=== PATIENT | male | born 1965 | race Caucasian/White ===

== ENCOUNTER 2017-01-22 01:12 | Emergency (ER) | payer MEDICAID ==
[2017-01-22] MEDS ORDERED: Albuterol-Ipratrop 3 mg / 0.5 (3 ml) UD ONE ×3 (01:20→01:30)
--- NOTE | 2017-01-22 01:42 | C.PDOC ---
History Of Present Illness Patient presents to the ED with complaints of cough and shortness of breath for the last week. Patient denies any fever, chills, nausea, or vomiting. Time Seen by Provider: 01/22/17 01:42 Chief Complaint (Nursing): Shortness Of Breath History Per: Patient History/Exam Limitations: no limitations Onset/Duration Of Symptoms: Days Current Symptoms Are (Timing): Still Present Severity: Mild Pain Scale Rating Of: 4 Associated Symptoms: Other (non-productive cough ). denies: Fever, Chills, Sweating, Chest Pain, Productive Cough Recent travel outside of the [place]: No Past Medical History Reviewed: Historical Data, Nursing Documentation, Vital Signs Vital Signs: Last Vital Signs Temp 98.6 F 01/22/17 01:27 Pulse 102 H 01/22/17 01:27 Resp 22 01/22/17 01:30 BP 113/83 01/22/17 01:27 Pulse Ox 98 01/22/17 02:39 - Medical History PMH: Asthma Family History: States: No Known Family Hx - Social History Hx Alcohol Use: No Hx Substance Use: No - Immunization History Hx Tetanus Toxoid Vaccination: No Hx Influenza Vaccination: No Hx Pneumococcal Vaccination: No Review Of Systems Constitutional: Negative for: Fever, Chills, Sweats Eyes: Negative for: Vision Change ENT: Negative for: Throat Pain Cardiovascular: Negative for: Chest Pain, Palpitations Respiratory: Positive for: Cough (non-productive), Shortness of Breath Gastrointestinal: Negative for: Nausea, Vomiting, Abdominal Pain, Diarrhea Genitourinary: Negative for: Dysuria Musculoskeletal: Negative for: Back Pain Skin: Negative for: Rash, Lesions, Jaundice Neurological: Negative for: Weakness Psych: Negative for: Anxiety Physical Exam - Physical Exam Appears: Non-toxic, No Acute Distress Skin: Warm, Dry Head: Normacephalic Eye(s): bilateral: Normal Inspection Oral Mucosa: Moist Throat: No Erythema Neck: Trachea Midline, Supple Chest: Symmetrical Cardiovascular: Rhythm Regular Respiratory: No Rales, Rhonchi (scattered rhonci bilaterally ), No Stridor, No Wheezing Gastrointestinal/Abdominal: Soft, No Tenderness, No Distention, No Guarding, No Rebound Back: Normal Inspection Extremity: Normal ROM, No Tenderness, Pedal Edema (chronic pedal edema ) Extremity: Bilateral: Atraumatic, Normal Color And Temperature Pulses: Left Dorsalis Pedis: Normal, Right Dorsalis Pedis: Normal Neurological/Psych: Oriented x3 (speaking in complete sentences ), Normal Speech , Normal Cognition Gait: Steady ED Course And Treatment - Laboratory Results Result Diagrams: 01/22/17 02:24 01/22/17 02:24 ECG: Interpreted By Me, Viewed By Me ECG Rhythm: Sinus Rhythm (102), Nonspecific Changes O2 Sat by Pulse Oximetry: 98 (room air ) Pulse Ox Interpretation: Normal - Radiology CXR: Interpreted by Me, Viewed By Me CXR Interpretation: No: Infiltrates, Fracture, Pnemothorax Reevaluation Time: 04:26 Reassessment Condition: Improved Critical Care Time - Critical Care Note Total Time (in mins): 30 Documented critical care: time excludes all time spent performing seperately billable procedures. Disposition Counseled Patient/Family Regarding: Studies Performed, Diagnosis, Need For Followup, Rx Given - Disposition Referrals: Patrick Jean Baptiste MD [Medical Doctor] - Disposition: HOME/ ROUTINE Disposition Time: 01:42 Condition: FAIR Prescriptions: Albuterol 0.083% [Albuterol Sulfate 3 Ml] 3 ml IH QID #50 neb Azithromycin [Zithromax Tri-Ty] 500 mg PO DAILY #3 tablet Prednisone [Deltasone] 20 mg PO DAILY #5 tablet Instructions: Asthma (DC) - Clinical Impression Clinical Impression: Asthma exacerbation - Scribe Statement The provider has reviewed the documentation as recorded by the Scribe Karla Patel All medical record entries made by the Scribe were at my direction and personally dictated by me. I have reviewed the chart and agree that the record accurately reflects my personal performance of the history, physical exam, medical decision making, and the department course for this patient. I have also personally directed, reviewed, and agree with the discharge instructions and disposition.
[2017-01-22] MEDS: Albuterol-Ipratrop 3 mg / 0.5 (3 ml) UD IH SCH ×3 (01:52→02:48)
[2017-01-22 02:26] LABS: BASO # 0.1 K/uL (0.0-0.2); EOS # 0.3 K/uL (0.0-0.7); EOS % 5.6 % (0.0-4.0); HEMATOCRIT 43.7 % (35.0-51.0); LYMPH # 2.8 K/uL (1.0-4.3); LYMPH % 43.9 % (20.0-40.0); MEAN CORPUSCULAR HEMOGLOBIN 27.5 pg (27.0-31.0); MEAN CORPUSCULAR HGB CONC 33.1 g/dL (33.0-37.0); MEAN PLATELET VOLUME 7.7 fL (7.2-11.7); MONO # 0.6 K/uL (0.0-0.8); MONO % 9.8 % (0.0-10.0); NRBC % 0.1 % (0.0-2.0); RED CELL DISTRIBUTION WIDTH 13.7 % (11.5-14.5); WHITE BLOOD COUNT 6.3 K/uL (4.8-10.8)
[2017-01-22 02:36] LABS: CHLORIDE 103 mmol/L (98-107); POTASSIUM 3.9 mmol/L (3.6-5.2); SODIUM 138 mmol/L (132-148)
[2017-01-22 02:37] LABS: GFR AFRICAN-AMERICAN > 60
[2017-01-22 02:38] LABS: ALB/GLOB RATIO 1.1 (1.0-2.1); ALKALINE PHOSPHATASE 49 U/L (38-126); ALT/SGPT 36 U/L (21-72); AST/SGOT 25 U/L (17-59); BILIRUBIN,TOTAL 0.6 mg/dL (0.2-1.3); BLOOD UREA NITROGEN 22 mg/dL (9-20); CALCIUM 7.8 mg/dl (8.6-10.4); CARBON DIOXIDE 23 mmol/L (22-30); GLUCOSE,RANDOM 111 mg/dL (75-110); TOTAL PROTEIN 5.9 g/dL (6.3-8.3)
[2017-01-22 02:39] LABS: MAGNESIUM 2.1 mg/dL (1.6-2.3)
[2017-01-22 03:07] LABS: RBC URINE < 1 /hpf (0-3); URINE BILIRUBIN NEGATIVE (NEGATIVE); URINE BLOOD NEGATIVE (NEGATIVE); URINE COLOR Yellow (YELLOW); URINE GLUCOSE (UA) NORMAL (Normal); URINE KETONE NEGATIVE (NEGATIVE); URINE LEUKOCYTE ESTERASE NEG Leu/uL (Negative); URINE PROTEIN NEGATIVE (NEGATIVE); URINE UROBILINOGEN NORMAL mg/dL (0.2-1.0); WBC URINE 1 /hpf (0-5)
[2017-01-22 04:35] VITALS: BP 115/68; PULSE 105; RESP 20; TEMP 98; O2SAT 96
--- NOTE | 2017-01-22 07:22 | RAD ---
PROCEDURE: CHEST RADIOGRAPH, 1 VIEW HISTORY: Shortness of breath COMPARISON: 08/18/2016 FINDINGS: LUNGS: Mild venous congestion. Bilateral hilar prominence. Patchy bibasilar airspace opacities. PLEURA: No pneumothorax or pleural fluid seen. CARDIOVASCULAR: Normal. OSSEOUS STRUCTURES: No significant abnormalities. VISUALIZED UPPER ABDOMEN: Normal. OTHER FINDINGS: None. IMPRESSION: Mild venous congestion. Bilateral hilar prominence. Patchy bibasilar airspace opacities.
--- NOTE | 2017-01-23 14:22 | CARD ---
APPROVED REPORT EKG Measurement Heart [id number] <Conclusion> Sinus tachycardia Increased R/S ratio in V1, consider early transition or posterior infarct Abnormal ECG
== END 2017-01-22 04:36 | disposition home or self-care (01) ==
LOC: C.ER 01:12
DX: J45.901 Unspecified asthma with (acute) exacerbation (principal)
CPT/HCPCS: 71010; 80053; 81001; 82803; 83735; 83880; 84484; 85025; 85378; 85610; 85730; 87040; 93005; 96374; 99284; J1885

== ENCOUNTER 2017-04-28 16:34 | Emergency (ER) | payer MEDICAID ==
[2017-04-28 17:02] VITALS: BMI 31.9
--- NOTE | 2017-04-28 18:14 | C.PDOC ---
History Of Present Illness <Alexander Ascencio E - Last Filed: 04/29/17 00:23> <Gabriel BLACKWELLLexa - Last Filed: 04/29/17 19:03> 51 yr old male presents to the Er with complaints of headache for the past 3 days. Patient states he took 160mg of Lasix 4 days ago, which is 4x his daily dose and did not take his potassium supplements. States this does not feel like the worse headache of his life. Patient also states he has chronic swelling in both of his legs for the past 2 years. Denies fever, chills, vision changes, chest pain, SOB, nausea, vomiting, abdominal pain, diarrhea, dizziness, weakness or numbness. (Lexa Rios DO) <Alexander Ascencio E - Last Filed: 04/29/17 00:23> History Per: Patient History/Exam Limitations: no limitations Onset/Duration Of Symptoms: Days (3) <Gabriel BLACKWELLLexa - Last Filed: 04/29/17 19:03> Time Seen by Provider: 04/28/17 17:18 Chief Complaint (Nursing): Headache Past Medical History Reviewed: Historical Data, Nursing Documentation, Vital Signs - Medical History PMH: Asthma Family History: States: No Known Family Hx - Social History Hx Alcohol Use: No Hx Substance Use: No - Immunization History Hx Tetanus Toxoid Vaccination: No Hx Influenza Vaccination: No Hx Pneumococcal Vaccination: No <Gabriel BLACKWELLLeax - Last Filed: 04/29/17 19:03> Vital Signs: Last Vital Signs Temp 98.2 F 04/28/17 19:42 Pulse 93 H 04/28/17 19:42 Resp 20 04/28/17 19:42 BP 117/81 04/28/17 19:42 Pulse Ox 96 04/28/17 19:42 Review Of Systems Except As Marked, All Systems Reviewed And Found Negative. Constitutional: Negative for: Fever, Chills Eyes: Negative for: Vision Change Cardiovascular: Negative for: Chest Pain Respiratory: Negative for: Shortness of Breath Gastrointestinal: Negative for: Nausea, Vomiting, Abdominal Pain, Diarrhea Neurological: Positive for: Headache. Negative for: Weakness, Numbness, Dizziness <Gabriel BLACKWELLLexa - Last Filed: 04/29/17 19:03> Physical Exam - Physical Exam Appears: Non-toxic, No Acute Distress Skin: Warm, Dry, No Rash Head: Atraumatic, Normacephalic Oral Mucosa: Moist Chest: Symmetrical, No Tenderness Cardiovascular: Rhythm Regular, No Murmur Respiratory: Normal Breath Sounds, No Rales, No Rhonchi, No Stridor, No Wheezing Extremity: Normal ROM, No Calf Tenderness, Capillary Refill (<2), Other ((+) 2+ pitting edema to bilateral lower extremities.) Neurological/Psych: Oriented x3, Normal Speech, Normal Motor <Lexa Rios DO - Last Filed: 04/29/17 19:03> ED Course And Treatment - Laboratory Results Result Diagrams: 04/28/17 18:25 04/28/17 18:25 <Alexander Ascencio - Last Filed: 04/29/17 00:23> - Laboratory Results Result Diagrams: 04/28/17 18:25 04/28/17 18:25 ECG: Interpreted By Me, Viewed By Me ECG Rhythm: Sinus Rhythm ECG Interpretation: Normal Interpretation Of ECG: Normal axis. Normal intervals. Rate From EC (BPM) O2 Sat by Pulse Oximetry: 96 (RA ) Pulse Ox Interpretation: Normal <Lexa Rios DO - Last Filed: 04/29/17 19:03> Medical Decision Making <Alexander Ascencio - Last Filed: 04/29/17 00:23> <Lexa Rios DO - Last Filed: 04/29/17 19:03> Medical Decision Makin: signed over- pt seen and examined pt with R thigh rash with warmth and tenderness given IV ABX (unknown) last night @ [facility] but left AMA without Rx's for complete ABX regimen "because it smelled bad there" today mild headache, eating but with little appetite. no n/v. Rash 30x20 cm R thigh with erythema warmth c/w mild cellulitis Belly benign. Explains the leukocytosis ? underlying gastritis/H.Pylori inferred from pt's h/o "bacteria in my stomach" A/P: will continue PO abx with keflex for R thigh cellulitis Protonix and maalox for GI upset/gastritis Diet hygiene educated. foreign born increased risk for H.Pylori outpatient f/u for Upper endoscopy and H.Pylori treatment dx/tx PRN though pt c/o leg edema and had take large lasix dose, pt is NOT urinating significantly and has mild lower extremity/pedal edema bilaterally symmetrical normal VS's.no further eval/observation required at this time. (Alexander Ascencio) PLAN: * CXR * EKG * CBC * CMP NOTE: 18:50 - Patient states he was in [facility] yesterday for vomiting. Patient states he was told he has some type of bacteria in his stomach but walked out prior to completing treatment. (Lexa Rios DO) Disposition Doctor Will See Patient In The: Office Counseled Patient/Family Regarding: Studies Performed, Diagnosis - Disposition Disposition Time: 19:23 <Alexander Ascencio - Last Filed: 04/29/17 00:23> <Lexa Rios DO - Last Filed: 04/29/17 19:03> - Disposition Referrals: Patrick Jean Baptiste MD [Medical Doctor] - Disposition: HOME/ ROUTINE Condition: GOOD Additional Instructions: Gastritis, ? H. Pylori: Protonix 20 mg daily Maalox 30 cc (one tablespoon) 5x/day to lower stomach acid Follow up with Dr. Edwards (GI) in 1-2 months to consider upper endoscopy and evaluate for gastritis/H. Pylori Cellulitis of R thigh: keflex 500 twice a day to complete 6 days Follow-up with your PMD for re-eval in 3 days to make sure the cellulitis/ infection is improved. Tylenol 1000 mg every 6 hours or Motrin 400-600 mg every 6 hours as needed for fevers. Prescriptions: Cephalexin [Keflex] 500 mg PO BID #9 capsule Pantoprazole Sodium [Protonix] 20 mg PO DAILY #30 ect Instructions: Gastritis (DC), Cellulitis (ED) Forms: [employer] ([place] Citizen) - Clinical Impression Clinical Impression: Cellulitis of thigh, Gastritis <Alexander Ascencio - Last Filed: 04/29/17 00:23> - Scribe Statement The provider has reviewed the documentation as recorded by the Scribe <Lexa Rios DO - Last Filed: 04/29/17 19:03> - Scribe Statement Candice Jurado (Lexa Rios DO) Provider Attestation: All medical record entries made by the Scribe were at my direction and personally dictated by me. I have reviewed the chart and agree that the record accurately reflects my personal performance of the history, physical exam, medical decision making, and the department course for this patient. I have also personally directed, reviewed, and agree with the discharge instructions and disposition. (Gabriel BLACKWELL,Lexa)
[2017-04-28] MEDS ORDERED: Sodium Chloride 0.9% 1,000 ML IV SCH (18:30)
--- NOTE | 2017-04-28 18:33 | RAD ---
HISTORY: h/o CHF COMPARISON: 01/22/2017. FINDINGS: LUNGS: There is mild pulmonary venous congestion. There is subsegmental atelectasis in the lower lobes. PLEURA: No significant pleural effusion identified, no pneumothorax apparent. CARDIOVASCULAR: Normal. OSSEOUS STRUCTURES: No significant abnormalities. VISUALIZED UPPER ABDOMEN: Normal. OTHER FINDINGS: None. IMPRESSION: Mild pulmonary venous congestion. No evidence of congestive heart failure.
[2017-04-28 18:39] LABS: BASO % 0.3 % (0.0-2.0); CHLORIDE 106 mmol/L (98-107); EOS % 0.3 % (0.0-4.0); HEMATOCRIT 39.8 % (35.0-51.0); LYMPH # 1.4 K/uL (1.0-4.3); LYMPH % 9.3 % (20.0-40.0); MEAN CELL VOLUME 83.1 fL (80.0-94.0); MEAN CORPUSCULAR HEMOGLOBIN 28.1 pg (27.0-31.0); MEAN CORPUSCULAR HGB CONC 33.9 g/dL (33.0-37.0); MEAN PLATELET VOLUME 7.3 fL (7.2-11.7); MONO # 0.7 K/uL (0.0-0.8); MONO % 4.7 % (0.0-10.0); PLATELET COUNT 228 K/uL (130-400); RED CELL DISTRIBUTION WIDTH 13.3 % (11.5-14.5)
[2017-04-28 18:40] LABS: POTASSIUM 4.3 mmol/L (3.6-5.2); SODIUM 139 mmol/L (132-148)
[2017-04-28 18:42] LABS: ALB/GLOB RATIO 0.9 (1.0-2.1); AST/SGOT 19 U/L (17-59); BILIRUBIN,TOTAL 0.7 mg/dL (0.2-1.3); BLOOD UREA NITROGEN 13 mg/dL (9-20); CARBON DIOXIDE 27 mmol/L (22-30); GFR AFRICAN-AMERICAN > 60; TOTAL PROTEIN 5.7 g/dL (6.3-8.3)
[2017-04-28] MEDS ORDERED: Sodium Chloride 0.9% 1,000 ML ONE (18:42)
[2017-04-28 18:43] LABS: ALKALINE PHOSPHATASE 61 U/L (38-126); ALT/SGPT 32 U/L (21-72); CALCIUM 8.3 mg/dl (8.6-10.4); GLUCOSE,RANDOM 93 mg/dL (75-110)
[2017-04-28] MEDS ORDERED: Iohexol 240 (50 ml) PO ONE (18:51)
[2017-04-28 18:54] VITALS: O2SAT 96
[2017-04-28] MEDS ORDERED: Iohexol 240 (50 ml) ONE (19:10)
[2017-04-28 19:11] LABS: EOSINOPHIL 1 % (0-4); NEUTROPHIL 88 % (50-75); TOTAL CELLS COUNTED 100
[2017-04-28 19:50] VITALS: BP 117/81; PULSE 93; RESP 20; TEMP 98.2
--- NOTE | 2017-04-29 06:50 | RAD ---
HISTORY: abd pain, leukocytosis COMPARISON: Frontal chest radiographs 04/28/2017 FINDINGS: LUNGS: Trace atelectasis remains at the right base with linear atelectasis or fibrosis noted at the left base. No definite left-sided infiltrate. PLEURA: No pleural effusion or pneumothorax identified bilaterally. CARDIOVASCULAR: Cardiac size remains normal. No definite pulmonary vascular derangement. Trachea is midline. OSSEOUS STRUCTURES: No significant abnormalities. VISUALIZED UPPER ABDOMEN: Normal. OTHER FINDINGS: None. IMPRESSION: Limited right basilar atelectasis with linear atelectasis or fibrosis in the left base.
--- NOTE | 2017-05-02 19:43 | CARD ---
APPROVED REPORT EKG Measurement Heart [id number] <Conclusion> Normal sinus rhythm Normal ECG
== END 2017-04-28 19:52 | disposition home or self-care (01) ==
LOC: C.ER 16:34
DX: L03.116 Cellulitis of left lower limb (principal); L03.115 Cellulitis of right lower limb; K29.70 Gastritis, unspecified, without bleeding
CPT/HCPCS: 71010; 80053; 83880; 85025; 96374; 96375; 99285; C9113; J1885; J7040; Q9966

== ENCOUNTER 2017-05-31 16:12 | Emergency (ER) | payer MEDICAID ==
[2017-05-31 16:12] VITALS: BMI 31.9
[2017-05-31] MEDS ORDERED: DiphenhydrAMINE 50 mg/ml Inj IVP STA (18:21)
--- NOTE | 2017-05-31 18:26 | C.PDOC ---
History Of Present Illness 51 year old male presents to the ED for evaluation of a 3 day history of a frontal headache that radiates down towards his forehead. Patient notes his symptoms are associated with photophobia and nausea. Patient has been taking Tylenol and Advil without significant relief. Patient also reports redness and pain to his right thigh which began around 2 days ago. Patient states he experienced similar symptoms to his thigh in the past. At the time, he received IV antibiotics which resolved the redness. He denies fever, chills,chest pain, shortness of breath, vomiting, diarrhea, upper/lower extremity numbness/ weakness. Time Seen by Provider: 05/31/17 17:20 Chief Complaint (Nursing): Headache History Per: Patient History/Exam Limitations: no limitations Onset/Duration Of Symptoms: Days Current Symptoms Are (Timing): Still Present Severity: Moderate Quality: Aching, "Pain" Associated Symptoms: Photophobia. denies: Nausea, Vomiting, Extremity Weakness Additional History Per: Patient Past Medical History Reviewed: Historical Data, Nursing Documentation, Vital Signs Vital Signs: Last Vital Signs Temp 97.9 F 05/31/17 22:07 Pulse 93 H 05/31/17 22:07 Resp 18 05/31/17 22:07 BP 101/66 05/31/17 22:07 Pulse Ox 97 05/31/17 22:07 - Medical History PMH: Asthma Surgical History: No Surg Hx Family History: States: Unknown Family Hx - Social History Hx Alcohol Use: No Hx Substance Use: No - Immunization History Hx Tetanus Toxoid Vaccination: No Hx Influenza Vaccination: No Hx Pneumococcal Vaccination: No Review Of Systems Except As Marked, All Systems Reviewed And Found Negative. Constitutional: Negative for: Fever, Chills Eyes: Positive for: Other (photophobia ) Cardiovascular: Negative for: Chest Pain Respiratory: Negative for: Shortness of Breath Gastrointestinal: Positive for: Nausea. Negative for: Vomiting, Diarrhea Musculoskeletal: Positive for: Other (pain to right thigh) Skin: Positive for: Other (redness to right thigh ) Neurological: Positive for: Headache (frontal ). Negative for: Weakness, Numbness Physical Exam - Physical Exam Appears: Non-toxic, No Acute Distress Skin: Warm, Dry, Rash (scattered macular rash to right medial thigh, 0.5-1cm in length ) Head: Atraumatic, Normacephalic Eye(s): bilateral: Normal Inspection, PERRL, EOMI Oral Mucosa: Moist Throat: No Erythema, No Exudate Neck: Normal ROM, Supple Chest: Symmetrical, No Deformity Cardiovascular: Rhythm Regular, No Murmur Respiratory: Normal Breath Sounds Gastrointestinal/Abdominal: Soft, No Tenderness Back: Normal Inspection, No CVA Tenderness Extremity: Normal ROM, No Tenderness, Capillary Refill (less than 2 seconds), No Swelling Neurological/Psych: Oriented x3, Normal Speech, Normal Cognition, Normal Motor, Normal Sensation Gait: Steady ED Course And Treatment - Laboratory Results Result Diagrams: 05/31/17 18:58 05/31/17 18:58 O2 Sat by Pulse Oximetry: 98 (on RA) Pulse Ox Interpretation: Normal Progress Note: CT HEad is unremarkable Medical Decision Making Medical Decision Making: Old records reviewed, the patient seen in the ED last month for headache and rash. Patient was treated with antibiotics and discharged home. Progress: CT Head ordered and reviewed. Benadryl IVP, Reglan IV, Toradol IVP, and IV fluids administered. On re-exam, the patient reports improvement of symptoms. Lungs are CTA, heart is RRR, abdomen is soft, non-tender and tolerating PO well. Ambulatory in the ED steady. Follow up with the medical doctor within 1-2 days. Return if worsened. Disposition - Disposition Referrals: [facility] [Outside] Disposition: HOME/ ROUTINE Disposition Time: 21:58 Condition: GOOD Additional Instructions: Follow up with the medical doctor within 1-2 days. Return if worsened. 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 - Scribe Statement The provider has reviewed the documentation as recorded by the Scribe (Angie Nunn) All medical record entries made by the Scribe were at my direction and personally dictated by me. I have reviewed the chart and agree that the record accurately reflects my personal performance of the history, physical exam, medical decision making, and the department course for this patient. I have also personally directed, reviewed, and agree with the discharge instructions and disposition.
[2017-05-31] MEDS ORDERED: DiphenhydrAMINE 50 mg/ml Inj ONE (18:47)
[2017-05-31] MEDS ORDERED: Sodium Chloride 0.9% 1,000 ML IV ONE (19:00)
[2017-05-31 19:02] LABS: BASO % 0.7 % (0.0-2.0); EOS # 0.2 K/uL (0.0-0.7); EOS % 2.4 % (0.0-4.0); HEMATOCRIT 41.7 % (35.0-51.0); LYMPH # 1.9 K/uL (1.0-4.3); LYMPH % 28.6 % (20.0-40.0); MEAN CELL VOLUME 81.4 fL (80.0-94.0); MEAN CORPUSCULAR HEMOGLOBIN 28.1 pg (27.0-31.0); MEAN CORPUSCULAR HGB CONC 34.5 g/dL (33.0-37.0); MEAN PLATELET VOLUME 6.9 fL (7.2-11.7); MONO # 0.8 K/uL (0.0-0.8); MONO % 11.8 % (0.0-10.0); RED CELL DISTRIBUTION WIDTH 13.9 % (11.5-14.5); WHITE BLOOD COUNT 6.5 K/uL (4.8-10.8)
[2017-05-31 19:17] LABS: CHLORIDE 101 mmol/L (98-107); POTASSIUM 4.4 mmol/L (3.6-5.2); SODIUM 136 mmol/L (132-148)
[2017-05-31 19:19] LABS: GFR AFRICAN-AMERICAN > 60
[2017-05-31 19:20] LABS: ALB/GLOB RATIO 1.1 (1.0-2.1); ALKALINE PHOSPHATASE 53 U/L (38-126); ALT/SGPT 36 U/L (21-72); AST/SGOT 22 U/L (17-59); BILIRUBIN,TOTAL 0.5 mg/dL (0.2-1.3); BLOOD UREA NITROGEN 16 mg/dL (9-20); CALCIUM 7.9 mg/dl (8.6-10.4); CARBON DIOXIDE 24 mmol/L (22-30); GLUCOSE,RANDOM 83 mg/dL (75-110); TOTAL PROTEIN 5.8 g/dL (6.3-8.3)
--- NOTE | 2017-05-31 21:01 | CT ---
EXAM: CT Head Without Intravenous Contrast EXAM DATE/TIME: Exam ordered 05/31/2017 6:26 PM CLINICAL HISTORY: 51 years old, male; Condition or disease; Headache TECHNIQUE: Axial computed tomography images of the head/brain without intravenous contrast. All CT scans at this facility use one or more dose reduction techniques, viz.: automated exposure control; ma/kV adjustment per patient size (including targeted exams where dose is matched to indication; i.e. head); or iterative reconstruction technique. COMPARISON: No relevant prior studies available. FINDINGS: Brain: Unremarkable. No hemorrhage. No significant white matter disease. No edema. Ventricles: Unremarkable. No ventriculomegaly. Bones/joints: Unremarkable. No acute fracture. Soft tissues: There are two parafalcine lipomas. One anteriorly measuring 4 mm and a second near the vertex measuring 2 mm. Sinuses: There is soft tissue thickening of the ethmoid air cells bilaterally. Mastoid air cells: Unremarkable as visualized. No mastoid effusion. Orbits: Calcifications or suture material noted within the orbits bilaterally and medially just inferior to the globe attachment of the medial rectus muscles. IMPRESSION: 1. No acute intracranial findings. 2. Chronic sinusitis of the ethmoid sinuses
[2017-05-31 22:07] VITALS: BP 101/66; PULSE 93; RESP 18; TEMP 97.9
[2017-06-04 16:33] VITALS: O2SAT 98
== END 2017-05-31 22:18 | disposition home or self-care (01) ==
LOC: C.ER 16:12
DX: R51 Headache (principal); L03.115 Cellulitis of right lower limb
CPT/HCPCS: 70450; 80053; 85025; 96361; 96365; 96375; 99285; J1200; J1885; J2765; J7040

== ENCOUNTER 2017-11-14 10:41 | Inpatient (IN) | payer MEDICAID ==
[2017-11-14 10:41] VITALS: BMI 31.9
[2017-11-14] MEDS ORDERED: Sodium Chloride 0.9% 1,000 ML IV ONE (11:48)
--- NOTE | 2017-11-14 12:07 | C.PDOC ---
History Of Present Illness 52-year-old male, denies any significant PMHx, presents to the emergency department with complaints of diffuse abdominal pain x1 day, associated with nausea, non-bloody/non-bilious vomiting, and non-bloody/watery diarrhea. Patient states symptoms started after eating chicken from [employer]. He has never experienced these symptoms in past. Secondary complaint is pain in his right buttock after mechanical slip/fall yesterday. Patient denies any other trauma or injury to neck/head. Denies fevers or chills. No shortness of breath or chest pain. Time Seen by Provider: 11/14/17 11:28 Chief Complaint (Nursing): Abdominal Pain History Per: Patient History/Exam Limitations: no limitations Onset/Duration Of Symptoms: Days (1) Current Symptoms Are (Timing): Still Present Severity: Moderate Past Medical History Reviewed: Historical Data, Nursing Documentation, Vital Signs Vital Signs: Last Vital Signs Temp 98.6 F 11/14/17 16:18 Pulse 102 H 11/14/17 16:18 Resp 20 11/14/17 16:18 BP 110/69 11/14/17 16:18 Pulse Ox 95 11/14/17 18:24 - Medical History PMH: Asthma Family History: States: No Known Family Hx - Social History Hx Alcohol Use: No Hx Substance Use: No - Immunization History Hx Tetanus Toxoid Vaccination: No Hx Influenza Vaccination: No Hx Pneumococcal Vaccination: No Review Of Systems Except As Marked, All Systems Reviewed And Found Negative. Constitutional: Negative for: Fever, Chills Respiratory: Negative for: Shortness of Breath Gastrointestinal: Positive for: Nausea, Vomiting, Abdominal Pain Musculoskeletal: Positive for: Leg Pain (right buttock pain) Neurological: Negative for: Weakness, Numbness, Headache, Dizziness Physical Exam - Physical Exam Appears: Well, Non-toxic, No Acute Distress Skin: Warm, Dry, No Diaphoretic, Rash, Other (macular, erythematous rash to right thigh, no crepitus, no obvious skin breaks ) Head: Normacephalic Eye(s): bilateral: PERRL Nose: Normal Oral Mucosa: Moist Lips: Normal Appearing Neck: Normal ROM Chest: Symmetrical Cardiovascular: Rhythm Regular, No Murmur Respiratory: Normal Breath Sounds, No Accessory Muscle Use Gastrointestinal/Abdominal: Soft, Tenderness (right, mild. (-)[place], (-) [place]), No Distention, No Guarding, No Rebound Back: Normal Inspection, Other (paralumbar tenderness and tenderness to right buttock area, nv intact, negative straight leg test ) Extremity: Normal ROM, No Deformity, No Swelling Neurological/Psych: Oriented x3, Normal Speech ED Course And Treatment - Laboratory Results Result Diagrams: 11/14/17 12:09 11/14/17 12:09 O2 Sat by Pulse Oximetry: 95 (RA) Pulse Ox Interpretation: Normal Medical Decision Making Medical Decision Making: Plan: * CT Abd/Pel * EKG * CMP, Lipase, Trop I * Pepcid, IVFs, Toradol and Zofran * XR Hip * UA * Reassess and Disposition Disposition Discussed With : Hunter Regan Doctor Will See Patient In The: Hospital Counseled Patient/Family Regarding: Studies Performed, Diagnosis - Disposition Disposition: HOME/ ROUTINE Disposition Time: 14:50 Condition: FAIR - Clinical Impression Clinical Impression: Abdominal pain, Cellulitis of thigh, Contusion - Scribe Statement The provider has reviewed the documentation as recorded by the Scribe (Thais Hobbs) All medical record entries made by the Scribe were at my direction and personally dictated by me. I have reviewed the chart and agree that the record accurately reflects my personal performance of the history, physical exam, medical decision making, and the department course for this patient. I have also personally directed, reviewed, and agree with the discharge instructions and disposition.
[2017-11-14 12:14] LABS: BASO # 0.1 K/uL (0.0-0.2); BASO % 0.5 % (0.0-2.0); HEMOGLOBIN 14.2 g/dL (12.0-18.0); LYMPH # 1.2 K/uL (1.0-4.3); LYMPH % 6.6 % (20.0-40.0); MEAN CELL VOLUME 82.8 fL (80.0-94.0); MEAN CORPUSCULAR HEMOGLOBIN 27.7 pg (27.0-31.0); MEAN CORPUSCULAR HGB CONC 33.5 g/dL (33.0-37.0); MEAN PLATELET VOLUME 8.2 fL (7.2-11.7); MONO # 0.8 K/uL (0.0-0.8); MONO % 4.1 % (0.0-10.0); NEUT # 16.6 K/uL (1.8-7.0); NEUT % 88.8 % (50.0-75.0); PLATELET COUNT 252 K/uL (130-400); RBC 5.12 Mil/uL (4.40-5.90); RED CELL DISTRIBUTION WIDTH 14.6 % (11.5-14.5)
[2017-11-14 12:16] LABS: WHITE BLOOD COUNT 18.7 K/uL (4.8-10.8)
[2017-11-14] MEDS ORDERED: Sodium Chloride 0.9% 1,000 ML ONE (12:16)
[2017-11-14] MEDS ORDERED: Iodixanol 320 MG/ML 100 ML BOTTLE IV ONE (12:29)
[2017-11-14 12:30] LABS: ALT/SGPT 38 U/L (21-72); AST/SGOT 34 U/L (17-59); BLOOD UREA NITROGEN 20 mg/dL (9-20); CALCIUM 7.8 mg/dl (8.6-10.4); GFR AFRICAN-AMERICAN > 60; GFR NON-AFRICAN AMERICAN > 60; LIPASE 14 U/L (23-300)
--- NOTE | 2017-11-14 12:58 | RAD ---
PROCEDURE: HISTORY: fall COMPARISON: None TECHNIQUE: AP view of the pelvis and applicable frog leg views obtained. FINDINGS: Bilateral superolateral acetabular spurring with corresponding bilateral joint-space narrowing present Probable right superolateral femoral head subchondral cystic changes No fracture or dislocation. IMPRESSION: Bilateral hip osteoarthrosis. No fracture
[2017-11-14 13:09] LABS: BANDS 5 % (0-2); LYMPHOCYTE 6 % (20-40); MONOCYTE 4 % (0-10); NEUTROPHIL 85 % (50-75); PLATELET ESTIMATE NORMAL (NORMAL); TOTAL CELLS COUNTED 100
--- NOTE | 2017-11-14 13:34 | RAD ---
PROCEDURE: Radiographs of the Lumbar Spine. HISTORY: back pain COMPARISON: No prior. FINDINGS: BONES: Normal alignment. No listhesis. No fracture. DISC SPACES: Unremarkable. OTHER FINDINGS: In the lateral projection, there is a rounded density with possible curvilinear calcification about the inferior border. This is not identifiable in the frontal view of the lumbar spine though this does not include the entire abdomen. Further evaluation with computed tomography of the abdomen is advised. IMPRESSION: Unremarkable lumbar spine. Possible soft tissue mass seen only in the lateral projection. Recommend evaluation with computed tomography.
--- NOTE | 2017-11-14 13:41 | VASCLAB ---
PROCEDURE: Right Lower Extremity Venous Duplex Exam. HISTORY: right leg swelling PRIORS: None. TECHNIQUE: Right common femoral, femoral, popliteal and posterior tibial, peroneal and great saphenous veins were evaluated. Flow was assessed with color Doppler, compressibility, assessment of phasic flow and augmentation response. Report prepared by RAPHAEL Hansen, RVT FINDINGS: RIGHT: 1. Common Femoral Vein: 1.1. Compressibility - Fully compressible: Thrombus - None: Flow - Phasic: Augmentation -Normal: Reflux - None. 2. Femoral Vein: 2.1. Compressibility - Fully compressible: Thrombus - None: Flow - Phasic: Augmentation -Normal: Reflux - None. 3. Popliteal Vein: 3.1. Compressibility - Fully compressible: Thrombus - None: Flow - Phasic: Augmentation -Normal: Reflux - None. 4. Posterior Tibial Vein: 4.1. Compressibility - Fully compressible: Thrombus - None: Flow - Phasic: Augmentation -Normal: Reflux - None. 5. Peroneal Vein: 5.1. Compressibility - Fully compressible: Thrombus - None: Flow - Phasic: Augmentation -Normal: Reflux - None. 6. Great Saphenous Vein: 6.1. Compressibility - Fully compressible: Thrombus -None: Flow - Phasic: Augmentation - Normal: Reflux - None. OTHER FINDINGS: IMPRESSION: No evidence of deep or superficial vein thrombosis of the right lower extremity with excellent venous flow. Normal valve function noted of the right side. Normal venous flow noted in the left common femoral vein.
--- NOTE | 2017-11-14 13:57 | CT ---
PROCEDURE: CT Abdomen and Pelvis with contrast HISTORY: abd pain COMPARISON: None available. TECHNIQUE: Contrast dose: 100 mL Visipaque 100 Radiation dose: Total exam DLP = 1038.18 mGy-cm. This CT exam was performed using one or more of the following dose reduction techniques: Automated exposure control, adjustment of the mA and/or kV according to patient size, and/or use of iterative reconstruction technique. FINDINGS: LOWER THORAX: Right greater than left basilar atelectasis. No visible pleural effusion or pneumothorax. Small hiatal hernia/distal esophageal wall thickening. LIVER: Unremarkable. GALLBLADDER AND BILE DUCTS: Unremarkable. PANCREAS: Fatty atrophy. SPLEEN: Unremarkable. ADRENALS: Unremarkable. KIDNEYS AND URETERS: The kidneys enhance symmetrically. No hydronephrosis or obstructing calculus identified. VASCULATURE: No aortic aneurysm. BOWEL: Stomach is nondistended. Lack of oral contrast limits evaluation for bowel pathology. Bowel loops appear within normal limits of caliber without evidence of obstruction. APPENDIX: The appendix appears within normal limits of caliber. No secondary signs of acute appendicitis. PERITONEUM: No significant free fluid. No definite free air. LYMPH NODES: Right inguinal adenopathy measuring in short axis. BLADDER: Unremarkable. REPRODUCTIVE: The prostate gland measures approximately 3.1 x 4.5 cm. Right-sided hydroceles. BONES: No acute osseous abnormality is detected. OTHER FINDINGS: None. IMPRESSION: Right inguinal adenopathy measuring in short axis. Right sided hydroceles. Right greater than left basilar atelectasis. Additional findings as above.
[2017-11-14] MEDS ORDERED: cefTRIAXone IV 1 gm in Dextros 50 ML IVPB ONE (14:46)
[2017-11-14] MEDS ORDERED: Piperacillin/Tazobact 3.375 GM in Sodium Chloride 100 ML IVPB STA (14:47)
[2017-11-14] MEDS ORDERED: Piperacillin/Tazobact 3.375 gm 100 ML IVPB ONE (14:52)
[2017-11-14] MEDS ORDERED: Vancomycin 1 gm/NS 200 ml 1 GM/200 ML BAG IVPB ONE (16:00)
[2017-11-14 16:43] LABS: SQUAMOUS EPITHIAL < 1 /hpf (0-5); URINE BACTERIA RARE (<OCC); URINE BILIRUBIN NEGATIVE (NEGATIVE); URINE BLOOD NEGATIVE (NEGATIVE); URINE CLARITY Clear (Clear); URINE COLOR Amber (YELLOW); URINE GLUCOSE (UA) NORMAL (Normal); URINE LEUKOCYTE ESTERASE NEG Leu/uL (Negative); URINE PROTEIN 1+ mg/dL (NEGATIVE)
[2017-11-14] MEDS: Piperacill/Tazo 3.375gm in Dex 3.375 GM/50 ML BAG IVPB SCH (21:22)
--- NOTE | 2017-11-14 23:41 | CP.PCM.HP ---
History of Present Illness - History of Present Illness History of Present Illness: Chief Complaint :right leg pain s/p fall 4 days ago Abdominal Pain History Of Present Illness 52-year-old male, denies any significant PMHx, presents to the emergency department with complaints of diffuse abdominal pain x1 day, associated with nausea, non-bloody/non-bilious vomiting, and non-bloody/watery diarrhea. Patient states symptoms started after eating chicken from [employer]. He has never experienced these symptoms in past. Secondary complaint is pain in his right buttock after mechanical slip/fall yesterday. Patient denies any other trauma or injury to neck/head. Denies fevers or chills. No shortness of breath or chest pain. Present on Admission - Present on Admission Any Indicators Present on Admission: Yes Past Patient History - Infectious Disease Hx of Infectious Diseases: None - Tetanus Immunizations Tetanus Immunization: Unknown - Past Medical History & Family History Past Medical History?: Yes - Past Social History Smoking Status: Never Smoked - PULMONARY Hx Asthma: Yes - MUSCULOSKELETAL/RHEUMATOLOGICAL Hx Falls: No - PSYCHIATRIC Hx Substance Use: No - SURGICAL HISTORY Hx Surgeries: Yes Hx Herniorrhaphy: Yes (Repair of inguinal hernia x15 years ago) - ANESTHESIA Hx Anesthesia: Yes Hx Anesthesia Reactions: No Hx Malignant Hyperthermia: No Meds Allergies/Adverse Reactions: Allergies Allergy/AdvReac Type Severity Reaction Status Date / Time No Known Allergies Allergy Verified 05/31/17 16:56 Physical Exam - Constitutional Appears: No Acute Distress - Head Exam Head Exam: ATRAUMATIC, NORMAL INSPECTION, NORMOCEPHALIC - Eye Exam Eye Exam: EOMI, Normal appearance, PERRL Pupil Exam: NORMAL ACCOMODATION, PERRL - Respiratory Exam Respiratory Exam: Clear to Auscultation Bilateral, NORMAL BREATHING PATTERN - Cardiovascular Exam Cardiovascular Exam: REGULAR RHYTHM - GI/Abdominal Exam GI & Abdominal Exam: Normal Bowel Sounds, Soft. absent: Tenderness - Neurological Exam Neurological exam: Alert, CN II-XII Intact, Oriented x3, Reflexes Normal - Psychiatric Exam Psychiatric exam: Anxious - Skin Skin Exam: Erythema Results - Vital Signs Recent Vital Signs: Last Vital Signs Temp 98.9 F 11/14/17 21:27 Pulse 102 H 11/14/17 16:18 Resp 20 11/14/17 16:18 BP 110/69 11/14/17 16:18 Pulse Ox 95 11/14/17 18:24 - Labs Result Diagrams: 11/14/17 12:09 11/14/17 12:09 Labs: Laboratory Results - last 24 hr 11/14/17 11/14/17 11/14/17 12:09 12:09 16:05 WBC 18.7 H D RBC 5.12 Hgb 14.2 Hct 42.4 MCV 82.8 MCH 27.7 MCHC 33.5 RDW 14.6 H Plt Count 252 MPV 8.2 Neut % (Auto) 88.8 H Lymph % (Auto) 6.6 L [place] % (Auto) 4.1 Eos % (Auto) 0.0 Baso % (Auto) 0.5 Neut # (Auto) 16.6 H Lymph # (Auto) 1.2 [place] # (Auto) 0.8 Eos # (Auto) 0.0 Baso # (Auto) 0.1 Neutrophils % (Manual) 85 H Band Neutrophils % 5 H Lymphocytes % (Manual) 6 L Monocytes % (Manual) 4 Platelet Estimate Normal RBC Morphology Normal Sodium 138 Potassium 3.7 Chloride 103 Carbon Dioxide 22 Anion Gap 17 BUN 20 Creatinine 1.2 Est GFR ( Amer) > 60 Est GFR (Non-Af Amer) > 60 Random Glucose 119 H Calcium 7.8 L Total Bilirubin 1.0 AST 34 ALT 38 Alkaline Phosphatase 65 Troponin I < 0.0120 Total Protein 5.9 L Albumin 3.0 L Globulin 2.9 Albumin/Globulin Ratio 1.0 Lipase 14 L Urine Color Lu Urine Clarity Clear Urine pH 6.0 Ur Specific [place] > 1.060 H Urine Protein 1+ H Urine Glucose (UA) Normal Urine Ketones Negative Urine Blood Negative Urine Nitrate Negative Urine Bilirubin Negative Urine Urobilinogen 4.0 Ur Leukocyte Esterase Neg Urine WBC (Auto) 1 Urine RBC (Auto) 3 Ur Squamous Epith Cells < 1 Urine Bacteria Rare Assessment & Plan (1) Fall (on) (from) other stairs and steps, initial encounter Status: Acute (2) Back pain Status: Acute (3) Cellulitis of thigh Status: Acute (4) Contusion Status: Acute
[2017-11-15] MEDS: Piperacill/Tazo 3.375gm in Dex 3.375 GM/50 ML BAG IVPB SCH ×4 (02:20→21:54)
[2017-11-15] MEDS: Vancomycin 1 gm/NS 200 ml 1 GM/200 ML BAG IVPB SCH ×2 (03:30→16:39)
--- NOTE | 2017-11-15 12:12 | CARD ---
APPROVED REPORT EKG Measurement Heart [id number] <Conclusion> Sinus tachycardia Otherwise normal ECG
--- NOTE | 2017-11-15 23:13 | CP.PCM.PN ---
Subjective - Date & Time of Evaluation Date of Evaluation: 11/15/17 Time of Evaluation: 17:50 - Subjective Subjective: Pt is seen and examined today, is improving Objective - Vital Signs/Intake and Output Vital Signs (last 24 hours): Temp Pulse Resp BP Pulse Ox 98.0 F 92 H 18 116/81 96 11/15/17 16:05 11/15/17 16:05 11/15/17 16:05 11/15/17 16:05 11/15/17 16:05 - Medications Medications: Current Medications Acetaminophen (Tylenol 325mg Tab) 650 mg PO Q6 PRN PRN Reason: Pain, Mild (1-3) Last Admin: 11/15/17 03:35 Dose: 650 mg Baclofen (Lioresal) 10 mg PO BID [facility] Last Admin: 11/15/17 21:55 Dose: 10 mg Heparin Sodium (Porcine) (Heparin) 5,000 units SC Q8 JOSUÉ Last Admin: 11/15/17 21:55 Dose: 5,000 units Vancomycin/Sodium Chloride (Vancomycin 1 Gm/Ns 200 Ml) 1 gm in 200 mls @ 133 mls/hr IVPB Q12H JOSUÉ PRN Reason: Protocol Stop: 11/20/17 04:01 Last Admin: 11/15/17 16:39 Dose: 133 mls/hr Piperacillin Sod/Tazobactam Sod (Zosyn 3.375 Gm Iv Premix) 3.375 gm in 50 mls @ 100 mls/hr IVPB Q6H JOSUÉ PRN Reason: Protocol Last Admin: 11/15/17 21:54 Dose: 100 mls/hr Ketorolac Tromethamine (Toradol) 30 mg IVP Q6 PRN PRN Reason: Pain, severe (8-10) Last Admin: 11/15/17 17:38 Dose: 30 mg Pantoprazole Sodium (Protonix Inj) 40 mg IVP DAILY [facility] Last Admin: 11/15/17 15:09 Dose: Not Given Pneumococcal Polyvalent Vaccine (Pneumovax 23 Vaccine) 0.5 ml IM .ONCE ONE Stop: 11/17/17 10:01 - Labs Labs: 11/14/17 12:09 11/14/17 12:09 - Constitutional Appears: No Acute Distress - Head Exam Head Exam: ATRAUMATIC, NORMAL INSPECTION, NORMOCEPHALIC - Eye Exam Eye Exam: EOMI, Normal appearance, PERRL Pupil Exam: NORMAL ACCOMODATION, PERRL - Respiratory Exam Respiratory Exam: Clear to Ausculation Bilateral, NORMAL BREATHING PATTERN - Cardiovascular Exam Cardiovascular Exam: REGULAR RHYTHM, +S1, +S2. absent: Murmur - GI/Abdominal Exam GI & Abdominal Exam: Soft, Normal Bowel Sounds. absent: Tenderness - Rectal Exam Rectal Exam: Deferred - Extremities Exam Additional comments: redness / swelling on right thigh extending from grion till upper part of knee Assessment and Plan (1) Abdominal pain Status: Acute (2) Cellulitis of thigh Status: Acute (3) Contusion Assessment & Plan: no fractures on CAT scan wbc was 18 Status: Acute
[2017-11-16 00:42] VITALS: RESP 20
[2017-11-16] MEDS: Piperacill/Tazo 3.375gm in Dex 3.375 GM/50 ML BAG IVPB SCH ×4 (02:10→21:15)
[2017-11-16] MEDS: Vancomycin 1 gm/NS 200 ml 1 GM/200 ML BAG IVPB SCH ×2 (03:25→16:50)
[2017-11-16 07:41] LABS: BLOOD UREA NITROGEN 14 mg/dL (9-20); CALCIUM 7.6 mg/dl (8.6-10.4); GFR AFRICAN-AMERICAN > 60; GFR NON-AFRICAN AMERICAN > 60
[2017-11-16 07:48] LABS: BASO % 0.3 % (0.0-2.0); EOS # 0.2 K/uL (0.0-0.7); EOS % 3.2 % (0.0-4.0); HEMOGLOBIN 12.9 g/dL (12.0-18.0); LYMPH # 1.1 K/uL (1.0-4.3); LYMPH % 18.3 % (20.0-40.0); MEAN CELL VOLUME 82.1 fL (80.0-94.0); MEAN CORPUSCULAR HEMOGLOBIN 28.2 pg (27.0-31.0); MEAN CORPUSCULAR HGB CONC 34.4 g/dL (33.0-37.0); MEAN PLATELET VOLUME 7.6 fL (7.2-11.7); MONO # 0.5 K/uL (0.0-0.8); MONO % 8.1 % (0.0-10.0); NEUT # 4.2 K/uL (1.8-7.0); NEUT % 70.1 % (50.0-75.0); RBC 4.56 Mil/uL (4.40-5.90); RED CELL DISTRIBUTION WIDTH 13.9 % (11.5-14.5)
[2017-11-16 07:53] LABS: WHITE BLOOD COUNT 6.1 K/uL (4.8-10.8)
--- NOTE | 2017-11-16 23:28 | CP.PCM.PN ---
Subjective - Date & Time of Evaluation Date of Evaluation: 11/16/17 Time of Evaluation: 20:40 - Subjective Subjective: PATIENT SEEN AND EVALUATED TODAY, AFEBRILE, DECREASED WBC COUNT, DECREASED BACK PAIN, PT IS ON PT, PAIN MEDICATIONS, ANTIBIOTICS Objective - Vital Signs/Intake and Output Vital Signs (last 24 hours): Temp Pulse Resp BP Pulse Ox 97.8 F 84 20 114/79 97 11/16/17 16:00 11/16/17 16:00 11/16/17 16:00 11/16/17 16:00 11/16/17 16:00 Intake and Output: 11/16/17 11/17/17 18:59 06:59 Intake Total 580 600 Balance 580 600 - Medications Medications: Current Medications Acetaminophen (Tylenol 325mg Tab) 650 mg PO Q6 PRN PRN Reason: Pain, Mild (1-3) Last Admin: 11/15/17 03:35 Dose: 650 mg Baclofen (Lioresal) 10 mg PO BID ON LICENSE OF [facility] Last Admin: 11/16/17 18:34 Dose: 10 mg Heparin Sodium (Porcine) (Heparin) 5,000 units SC Q8 ON LICENSE OF [facility] Last Admin: 11/16/17 22:16 Dose: 5,000 units Vancomycin/Sodium Chloride (Vancomycin 1 Gm/Ns 200 Ml) 1 gm in 200 mls @ 133 mls/hr IVPB Q12H JOSUÉ PRN Reason: Protocol Stop: 11/20/17 04:01 Last Admin: 11/16/17 16:50 Dose: 133 mls/hr Piperacillin Sod/Tazobactam Sod (Zosyn 3.375 Gm Iv Premix) 3.375 gm in 50 mls @ 100 mls/hr IVPB Q6H JOSUÉ PRN Reason: Protocol Last Admin: 11/16/17 21:15 Dose: 100 mls/hr Ketorolac Tromethamine (Toradol) 30 mg IVP Q6 PRN PRN Reason: Pain, severe (8-10) Last Admin: 11/16/17 23:10 Dose: 30 mg Pantoprazole Sodium (Protonix Inj) 40 mg IVP DAILY ON [facility] OF [facility] Last Admin: 11/16/17 09:39 Dose: 40 mg Pneumococcal Polyvalent Vaccine (Pneumovax 23 Vaccine) 0.5 ml IM .ONCE ONE Stop: 11/17/17 10:01 - Labs Labs: 11/16/17 07:11 11/16/17 07:11 - Constitutional Appears: No Acute Distress - Head Exam Head Exam: ATRAUMATIC, NORMAL INSPECTION, NORMOCEPHALIC - Eye Exam Eye Exam: EOMI, Normal appearance, PERRL Pupil Exam: NORMAL ACCOMODATION, PERRL - Respiratory Exam Respiratory Exam: Clear to Ausculation Bilateral, NORMAL BREATHING PATTERN - Cardiovascular Exam Cardiovascular Exam: REGULAR RHYTHM, +S1, +S2. absent: Murmur - GI/Abdominal Exam GI & Abdominal Exam: Soft, Normal Bowel Sounds. absent: Tenderness Assessment and Plan (1) Fall (on) (from) other stairs and steps, initial encounter Status: Acute (2) Back pain Status: Acute (3) Cellulitis of thigh Status: Acute (4) Contusion Status: Acute - Assessment and Plan (Free Text) Plan: PT, PAIN MEDICATIONS, ANTIBIOTICS
[2017-11-17] MEDS: Piperacill/Tazo 3.375gm in Dex 3.375 GM/50 ML BAG IVPB SCH ×2 (02:04→09:20)
[2017-11-17] MEDS: Vancomycin 1 gm/NS 200 ml 1 GM/200 ML BAG IVPB SCH (03:17)
[2017-11-17 08:36] VITALS: BP 113/78; PULSE 76; TEMP 98.3; O2SAT 96
[2017-11-17] MEDS ORDERED: Influenza Vaccine 60 mcg/0.5 mL SYR (4YR UP) IM ONE (10:00)
[2017-11-17] MEDS ORDERED: Pneumococcal 23-Valent Vaccine IM ONE (10:00)
--- NOTE | 2017-11-17 17:03 | CP.PCM.PN ---
Subjective - Date & Time of Evaluation Date of Evaluation: 11/17/17 Time of Evaluation: 11:00 - Subjective Subjective: Alert, orientedx3, has minimal swelling on the right leg, no distress, ambulatory. Objective - Vital Signs/Intake and Output Vital Signs (last 24 hours): Temp Pulse Resp BP Pulse Ox 98.3 F 76 20 113/78 96 11/17/17 08:00 11/17/17 12:02 11/17/17 08:00 11/17/17 12:02 11/17/17 12:02 Intake and Output: 11/17/17 11/17/17 06:59 18:59 Intake Total 970 Output Total 400 Balance 570 - Labs Labs: 11/16/17 07:11 11/16/17 07:11 Assessment and Plan - Assessment and Plan (Free Text) Assessment: Patient admitted with abdominal pain, right leg pain and swelling, seen and examined. Alert and orientedx3, ambulatory, denies any pain now. Has minimal swelling on the right leg. Discussed with DR Regan, plan to discharge home on oral antibiotics x4 days more. Advised to follow up with PMD in 1 week.
--- NOTE | 2017-11-17 23:45 | CP.PCM.DIS ---
Provider - Provider Date of Admission: 11/14/17 14:50 Attending physician: Hunter Regan MD Diagnosis - Discharge Diagnosis (1) Fall (on) (from) other stairs and steps, initial encounter Status: Acute (2) Back pain Status: Acute (3) Cellulitis of thigh Status: Acute (4) Contusion Status: Acute Hospital Course - Lab Results Lab Results: Micro Results 11/14/17 15:05 Blood Blood Culture - Preliminary NO GROWTH AFTER 3 DAYS 11/14/17 14:50 Blood Blood Culture - Preliminary NO GROWTH AFTER 3 DAYS Most Recent Lab Values WBC 6.1 K/uL (4.8-10.8) D 11/16/17 07:11 RBC 4.56 Mil/uL (4.40-5.90) 11/16/17 07:11 Hgb 12.9 g/dL (12.0-18.0) 11/16/17 07:11 Hct 37.5 % (35.0-51.0) 11/16/17 07:11 MCV 82.1 fL (80.0-94.0) 11/16/17 07:11 MCH 28.2 pg (27.0-31.0) 11/16/17 07:11 MCHC 34.4 g/dL (33.0-37.0) 11/16/17 07:11 RDW 13.9 % (11.5-14.5) 11/16/17 07:11 Plt Count 230 K/uL (130-400) 11/16/17 07:11 MPV 7.6 fL (7.2-11.7) 11/16/17 07:11 Neut % (Auto) 70.1 % (50.0-75.0) 11/16/17 07:11 Lymph % (Auto) 18.3 % (20.0-40.0) L 11/16/17 07:11 [place] % (Auto) 8.1 % (0.0-10.0) 11/16/17 07:11 Eos % (Auto) 3.2 % (0.0-4.0) 11/16/17 07:11 Baso % (Auto) 0.3 % (0.0-2.0) 11/16/17 07:11 Neut # (Auto) 4.2 K/uL (1.8-7.0) 11/16/17 07:11 Lymph # (Auto) 1.1 K/uL (1.0-4.3) 11/16/17 07:11 [place] # (Auto) 0.5 K/uL (0.0-0.8) 11/16/17 07:11 Eos # (Auto) 0.2 K/uL (0.0-0.7) 11/16/17 07:11 Baso # (Auto) 0.0 K/uL (0.0-0.2) 11/16/17 07:11 Neutrophils % (Manual) 85 % (50-75) H 11/14/17 12:09 Band Neutrophils % 5 % (0-2) H 11/14/17 12:09 Lymphocytes % (Manual) 6 % (20-40) L 11/14/17 12:09 Monocytes % (Manual) 4 % (0-10) 11/14/17 12:09 Platelet Estimate Normal (NORMAL) 11/14/17 12:09 RBC Morphology Normal 11/14/17 12:09 Sodium 140 mmol/L (132-148) 11/16/17 07:11 Potassium 3.9 mmol/L (3.6-5.2) 11/16/17 07:11 Chloride 109 mmol/L (98-107) H 11/16/17 07:11 Carbon Dioxide 26 mmol/L (22-30) 11/16/17 07:11 Anion Gap 9 (10-20) L 11/16/17 07:11 BUN 14 mg/dL (9-20) 11/16/17 07:11 Creatinine 1.1 mg/dL (0.8-1.5) 11/16/17 07:11 Est GFR ( Amer) > 60 11/16/17 07:11 Est GFR (Non-Af Amer) > 60 11/16/17 07:11 Random Glucose 92 mg/dL (75-110) 11/16/17 07:11 Calcium 7.6 mg/dl (8.6-10.4) L 11/16/17 07:11 Total Bilirubin 1.0 mg/dL (0.2-1.3) 11/14/17 12:09 AST 34 U/L (17-59) 11/14/17 12:09 ALT 38 U/L (21-72) 11/14/17 12:09 Alkaline Phosphatase 65 U/L (38-126) 11/14/17 12:09 Troponin I < 0.0120 ng/mL (0.00-0.120) 11/14/17 12:09 Total Protein 5.9 g/dL (6.3-8.3) L 11/14/17 12:09 Albumin 3.0 g/dL (3.5-5.0) L 11/14/17 12:09 Globulin 2.9 gm/dL (2.2-3.9) 11/14/17 12:09 Albumin/Globulin Ratio 1.0 (1.0-2.1) 11/14/17 12:09 Lipase 14 U/L (23-300) L 11/14/17 12:09 Urine Color Lu (YELLOW) 11/14/17 16:05 Urine Clarity Clear (Clear) 11/14/17 16:05 Urine pH 6.0 (5.0-8.0) 11/14/17 16:05 Ur Specific [place] > 1.060 (1.003-1.030) H 11/14/17 16:05 Urine Protein 1+ mg/dL (NEGATIVE) H 11/14/17 16:05 Urine Glucose (UA) Normal mg/dL (Normal) 11/14/17 16:05 Urine Ketones Negative mg/dL (NEGATIVE) 11/14/17 16:05 Urine Blood Negative (NEGATIVE) 11/14/17 16:05 Urine Nitrate Negative (NEGATIVE) 11/14/17 16:05 Urine Bilirubin Negative (NEGATIVE) 11/14/17 16:05 Urine Urobilinogen 4.0 mg/dL (0.2-1.0) 11/14/17 16:05 Ur Leukocyte Esterase Neg [place]/uL (Negative) 11/14/17 16:05 Urine WBC (Auto) 1 /hpf (0-5) 11/14/17 16:05 Urine RBC (Auto) 3 /hpf (0-3) 11/14/17 16:05 Ur Squamous Epith Cells < 1 /hpf (0-5) 11/14/17 16:05 Urine Bacteria Rare (<OCC) 11/14/17 16:05 Discharge Exam - Head Exam Head Exam: ATRAUMATIC, NORMAL INSPECTION, NORMOCEPHALIC Discharge Plan - Discharge Medications Prescriptions: Clindamycin [Cleocin] 300 mg PO TID #21 cap Baclofen [Lioresal] 10 mg PO BID #20 tab Ibuprofen [Motrin] 400 mg PO TID PRN #20 tab PRN Reason: Pain, Severe (8-10) Pantoprazole Sodium [Protonix] 40 mg PO DAILY #15 ect - Follow Up Plan Condition: FAIR Disposition: HOME/ ROUTINE Instructions: Clindamycin (Systemic), Low Back Pain (DC), Acute Abdomen ( Belly Pain), Adult (DC), Cellulitis (Skin Infection), Adult (DC), Baclofen, Ibuprofen, Cellulitis (DC) Referrals: Hunter Regan MD [Staff Provider] -
== END 2017-11-17 12:25 | disposition home or self-care (01) | DRG 278 ==
LOC: C.ER 10:41 → C.9E 14:50 → C.3T 16:47
PROVIDERS: ADMIT Internal Medicine; ATTEND Internal Medicine
DX: L03.115 Cellulitis of right lower limb (principal); S70.11XA Contusion of right thigh, initial encounter; J45.909 Unspecified asthma, uncomplicated; W10.9XXA Fall (on) (from) unspecified stairs and steps, initial encounter; M54.9 Dorsalgia, unspecified; R10.84 Generalized abdominal pain

== ENCOUNTER 2018-01-02 11:33 | Inpatient (IN) | payer MEDICAID ==
[2018-01-02 11:52] VITALS: BMI 29.0
[2018-01-02] MEDS ORDERED: Sodium Chloride 0.9% 1,000 ML IV ONE ×2 (12:26→15:15)
[2018-01-02] MEDS ORDERED: Piperacill/Tazo 4.5gm in Dex 4.5 GM/100 ML BAG IVPB STA (12:29)
[2018-01-02 12:50] LABS: BASO # 0.1 K/uL (0.0-0.2); BASO % 0.7 % (0.0-2.0); EOS # 0.1 K/uL (0.0-0.7); EOS % 1.6 % (0.0-4.0); HEMOGLOBIN 14.6 g/dL (12.0-18.0); LYMPH # 0.8 K/uL (1.0-4.3); LYMPH % 9.3 % (20.0-40.0); MEAN CELL VOLUME 81.7 fL (80.0-94.0); MEAN CORPUSCULAR HEMOGLOBIN 28.6 pg (27.0-31.0); MEAN PLATELET VOLUME 7.3 fL (7.2-11.7); MONO # 0.5 K/uL (0.0-0.8); MONO % 5.7 % (0.0-10.0); NEUT # 6.9 K/uL (1.8-7.0); NEUT % 82.7 % (50.0-75.0); PLATELET COUNT 241 K/uL (130-400); RED CELL DISTRIBUTION WIDTH 14.2 % (11.5-14.5); WHITE BLOOD COUNT 8.3 K/uL (4.8-10.8)
[2018-01-02 12:52] LABS: URINE BILIRUBIN NEGATIVE (NEGATIVE); URINE BLOOD NEGATIVE (NEGATIVE); URINE CLARITY Clear (Clear); URINE COLOR Yellow (YELLOW); URINE GLUCOSE (UA) NORMAL (Normal); URINE LEUKOCYTE ESTERASE NEG Leu/uL (Negative); URINE PROTEIN NEGATIVE (NEGATIVE); URINE UROBILINOGEN NORMAL mg/dL (0.2-1.0)
--- NOTE | 2018-01-02 12:52 | C.PDOC ---
History Of Present Illness 52 yo male w/o significant PMHx come in for evaluation fo Right upper thigh pain , redness gradually developed since today AM. Pt also c/o bodyaches, chills since yesterday. Pt describes Right upper leg pain as localized over thigh, non- radiating, constant, aching. Otherwise, pt denies high fever, headache, dizziness, neck pain, sore throat, cough, CP, SOB, dyspnea, palpitation, diaphoresis, abd. pain, V/D, denies back pain, UTI sx, denies weakness, sensory or vascular deficits to RLE, denies known trauma or injury. Ambulate to ED appears in pain in Right leg. Time Seen by Provider: 01/02/18 12:19 Chief Complaint (Nursing): Lower Extremity Problem/Injury History Per: Patient Past Medical History Reviewed: Historical Data, Nursing Documentation, Vital Signs Vital Signs: Last Vital Signs Temp 100.4 F H 01/02/18 15:11 Pulse 121 H 01/02/18 15:11 Resp 21 01/02/18 15:11 BP 136/80 01/02/18 15:11 Pulse Ox 98 01/02/18 15:11 - Medical History PMH: Arthritis (knee), Asthma Surgical History: No Surg Hx Family History: States: Unknown Family Hx - Social History Hx Tobacco Use: No Hx Alcohol Use: No Hx Substance Use: No - Immunization History Hx Tetanus Toxoid Vaccination: No Hx Influenza Vaccination: No Hx Pneumococcal Vaccination: No Review Of Systems Except As Marked, All Systems Reviewed And Found Negative. Constitutional: Positive for: Chills, Malaise. Negative for: Fever ENT: Negative for: Ear Discharge, Nose Discharge, Nose Congestion, Throat Pain, Throat Swelling Cardiovascular: Negative for: Chest Pain, Edema, Light Headedness Respiratory: Negative for: Cough, Shortness of Breath Gastrointestinal: Negative for: Nausea, Vomiting, Abdominal Pain, Diarrhea Genitourinary: Negative for: Dysuria, Incontinence Musculoskeletal: Positive for: Leg Pain. Negative for: Neck Pain, Back Pain Skin: Positive for: Rash. Negative for: Bruising Neurological: Negative for: Weakness, Numbness, Altered Mental Status, Headache , Dizziness Physical Exam - Physical Exam Appears: Well, Non-toxic, No Acute Distress Skin: Normal Color, Warm, Dry, Other (diffuse erythema to Right proximal thigh extend to Right groin area, warmth. No proximal streaking.) Eye(s): bilateral: PERRL Ear(s): Bilateral: Normal Nose: No Flaring, No Discharge Oral Mucosa: Moist Throat: No Erythema, No Drooling Neck: Trachea Midline, Supple, Other ((-) meningeal sign) Cardiovascular: Rhythm Regular, No Murmur, No JVD Respiratory: No Decreased Breath Sounds, No Accessory Muscle Use, No Stridor, No Wheezing Gastrointestinal/Abdominal: Soft, No Tenderness, No Distention, No Guarding Back: No CVA Tenderness Extremity: Normal ROM (RLE), Tenderness (Right proximal thigh/femur), No Pedal Edema, No Calf Tenderness (B/L), No Deformity, No Swelling Pulses: Right Femoral: Normal, Right Dorsalis Pedis: Normal Neurological/Psych: Oriented x3, Normal Speech, Normal Motor, Normal Sensation, Normal Reflexes ED Course And Treatment - Laboratory Results Result Diagrams: 01/02/18 12:46 01/02/18 12:46 Lab Interpretation: Normal O2 Sat by Pulse Oximetry: 98 Pulse Ox Interpretation: Normal - Radiology CXR: Interpreted by Me, Viewed By Me CXR Interpretation: Yes: No Acute Disease - CT Scan/US Doppler US RLE Other Rad Studies (CT/US): Interpreted By Me, Read By Radiologist CT/US Interpretation: (-) DVT RLE. Progress Note: AT 3:00, pt still c/o Right leg pain after ED treatment. Febrile , tachycardic. Blood work review, no leukocytosis. Doppler US (-) DVT RLE. RLE: (+) diffuse erythema proximal Right femur extend to groin area. FAROM, good peripheral pulses. Neurologicaly intact. Pt unble to ambulate in ED due to Right leg pain. Case discussed with and admission arranged. Disposition - Disposition Disposition: HOSPITALIZED Disposition Time: 14:30 Condition: GOOD - Clinical Impression Clinical Impression: Cellulitis of thigh, Leg pain
[2018-01-02 13:01] LABS: BLOOD UREA NITROGEN 14 mg/dL (9-20); CALCIUM 8.4 mg/dl (8.6-10.4); GFR AFRICAN-AMERICAN > 60; GFR NON-AFRICAN AMERICAN > 60
[2018-01-02 13:12] LABS: BANDS 1 % (0-2); EOSINOPHIL 1 % (0-4); LYMPHOCYTE 8 % (20-40); MONOCYTE 3 % (0-10); NEUTROPHIL 85 % (50-75); OVALOCYTES SLIGHT; PLATELET ESTIMATE NORMAL (NORMAL); REACTIVE LYMPHOCYTES 2 % (0-0); TOTAL CELLS COUNTED 100
[2018-01-02 13:16] LABS: BARBITURATES, UR NEGATIVE (NEGATIVE); BENZODIAZEPINES, UR NEGATIVE (NEGATIVE); OPIATES, UR NEGATIVE (NEGATIVE); PHENCYCLIDINE, UR NEGATIVE (NEGATIVE)
[2018-01-02] MEDS ORDERED: Sodium Chloride 0.9% 1,000 ML ONE (15:18)
--- NOTE | 2018-01-02 15:41 | RAD ---
HISTORY: Cough COMPARISON: No prior. TECHNIQUE: Chest PA and lateral FINDINGS: LUNGS: No active pulmonary disease. PLEURA: No significant pleural effusion identified. No pneumothorax apparent. CARDIOVASCULAR: No radiographic findings to suggest acute or significant cardiovascular disease. OSSEOUS STRUCTURES: No significant abnormalities. VISUALIZED UPPER ABDOMEN: Normal. OTHER FINDINGS: None. IMPRESSION: No active disease.
--- NOTE | 2018-01-02 16:20 | CP.PCM.HP ---
History of Present Illness - History of Present Illness History of Present Illness: Patient was seen and evaluated in [facility] Bed 3. Patient is a FULL CODE STATUS at this time. It is unclear whether patient has emergency contacts. At this point, patient is not willing to divulge that information. CC: Leg pain HPI: 52 year old male with "no stated" significant past medical history presents with complaints of leg pain which began two days ago. Patient states that he also felt subjectively warm and thus came to the emergency room via taxicab. Patient states that his right thigh is tender to touch. Patient states that this is not the first occurrence of the leg pain. He states that he had a similar presentation 3-4 months prior which resolved. Patient cannot recall exposure to any new clothing material, cologne or fragrances or new detergents or soaps. He denies eating nay new foods, or benign exposed to any animals. He denies trauma as well. Patient admits to subjective warmth and chills and headaches. He denies nausea, vomiting, recent cold, abdominal pain, pruritus or hives at this time. PMHx- cellulitis PSHx- hernia repair Fam Hx- denies Meds- a "water pill" Social- Former smoker 1/2 pack a day for 35 years- quit 8-9 years ago; denies current drug use; denies alcohol use; works as a sweeper driver Allergies- denies PMD- Dr. Hayes in [place]- last seen 3-4 months ago Present on Admission - Present on Admission Any Indicators Present on Admission: No Review of Systems - Constitutional Constitutional: Chills, Fever, Headache - EENT Nose/Mouth/Throat: absent: Nasal Congestion, Nasal Discharge - Cardiovascular Cardiovascular: absent: Chest Pain - Respiratory Respiratory: absent: Cough, Dyspnea - Gastrointestinal Gastrointestinal: absent: Abdominal Pain, Heartburn, Nausea, Vomiting - Genitourinary Genitourinary: absent: Change in Urinary Stream - Musculoskeletal Musculoskeletal: absent: Atrophy, Back Pain, Joint Swelling, Numbness - Integumentary Integumentary: absent: Wounds - Neurological Neurological: absent: Abnormal Movements, Confusion - Psychiatric Psychiatric: Anxiety - Endocrine Endocrine: absent: Change in Body Appearance - Hematologic/Lymphatic Hematologic: absent: Easy Bleeding Past Patient History - Infectious Disease Hx of Infectious Diseases: None - Tetanus Immunizations Tetanus Immunization: Unknown - Past Medical History & Family History Past Medical History?: Yes - Past Social History Smoking Status: Former Smoker Alcohol: None - PULMONARY Hx Asthma: Yes - MUSCULOSKELETAL/RHEUMATOLOGICAL Hx Arthritis: Yes (knee) - PSYCHIATRIC Hx Substance Use: No - SURGICAL HISTORY Hx Surgeries: Yes Hx Herniorrhaphy: Yes (Repair of inguinal hernia x15 years ago) - ANESTHESIA Hx Anesthesia: Yes Hx Anesthesia Reactions: No Hx Malignant Hyperthermia: No Meds Allergies/Adverse Reactions: Allergies Allergy/AdvReac Type Severity Reaction Status Date / Time No Known Allergies Allergy Verified 01/02/18 11:49 Physical Exam - Constitutional Appears: Non-toxic, No Acute Distress - Head Exam Head Exam: ATRAUMATIC, NORMAL INSPECTION, NORMOCEPHALIC - Eye Exam Additional comments: would not open eyes - ENT Exam ENT Exam: Mucous Membranes Moist - Neck Exam Neck exam: Positive for: Full Rom - Respiratory Exam Respiratory Exam: NORMAL BREATHING PATTERN. absent: Wheezes - Cardiovascular Exam Cardiovascular Exam: REGULAR RHYTHM, +S1, +S2 - GI/Abdominal Exam GI & Abdominal Exam: Normal Bowel Sounds, Soft. absent: Tenderness - Extremities Exam Extremities exam: Positive for: full ROM, tenderness (right upper thigh) - Neurological Exam Neurological exam: Alert, Oriented x3 - Psychiatric Exam Psychiatric exam: Normal Affect, Normal Mood - Skin Skin Exam: Dry, Intact, Warm Additional comments: blanchable erythematous medial right upper thigh; no hives noted; no other signs of additional erythema on the posterior back or anterior chest legs or arms Results - Vital Signs Recent Vital Signs: Last Vital Signs Temp 100.4 F H 01/02/18 15:11 Pulse 121 H 01/02/18 15:11 Resp 21 01/02/18 15:11 BP 136/80 01/02/18 15:11 Pulse Ox 98 01/02/18 15:11 - Labs Result Diagrams: 01/02/18 12:46 01/02/18 12:46 Labs: Laboratory Results - last 24 hr 01/02/18 01/02/18 01/02/18 12:27 12:46 12:46 WBC 8.3 RBC 5.10 Hgb 14.6 Hct 41.7 MCV 81.7 MCH 28.6 MCHC 35.0 RDW 14.2 Plt Count 241 MPV 7.3 Neut % (Auto) 82.7 H Lymph % (Auto) 9.3 L [place] % (Auto) 5.7 Eos % (Auto) 1.6 Baso % (Auto) 0.7 Neut # (Auto) 6.9 Lymph # (Auto) 0.8 L [place] # (Auto) 0.5 Eos # (Auto) 0.1 Baso # (Auto) 0.1 Neutrophils % (Manual) 85 H Band Neutrophils % 1 Lymphocytes % (Manual) 8 L Reactive Lymphs % 2 H Monocytes % (Manual) 3 Eosinophils % (Manual) 1 Platelet Estimate Normal Ovalocytes Slight Sodium Potassium Chloride Carbon Dioxide Anion Gap BUN Creatinine Est GFR ( Amer) Est GFR (Non-Af Amer) Random Glucose Calcium Urine Color Yellow Urine Clarity Clear Urine pH 7.0 Ur Specific Spencer 1.015 Urine Protein Negative Urine Glucose (UA) Normal Urine Ketones Negative Urine Blood Negative Urine Nitrate Negative Urine Bilirubin Negative Urine Urobilinogen Normal Ur Leukocyte Esterase Neg Urine WBC (Auto) < 1 Urine Opiates Screen Urine Methadone Screen Ur Barbiturates Screen Ur Phencyclidine Scrn Ur Amphetamines Screen U Benzodiazepines Scrn U Oth Cocaine Metabols U Cannabinoids Screen Influenza Typ A,B (EIA) Negative for flu a/b 01/02/18 01/02/18 12:46 12:46 WBC RBC Hgb Hct MCV MCH MCHC RDW Plt Count MPV Neut % (Auto) Lymph % (Auto) [place] % (Auto) Eos % (Auto) Baso % (Auto) Neut # (Auto) Lymph # (Auto) [place] # (Auto) Eos # (Auto) Baso # (Auto) Neutrophils % (Manual) Band Neutrophils % Lymphocytes % (Manual) Reactive Lymphs % Monocytes % (Manual) Eosinophils % (Manual) Platelet Estimate Ovalocytes Sodium 141 Potassium 3.9 Chloride 105 Carbon Dioxide 29 Anion Gap 11 BUN 14 Creatinine 1.0 Est GFR ( Amer) > 60 Est GFR (Non-Af Amer) > 60 Random Glucose 103 Calcium 8.4 L Urine Color Urine Clarity Urine pH Ur Specific Spencer Urine Protein Urine Glucose (UA) Urine Ketones Urine Blood Urine Nitrate Urine Bilirubin Urine Urobilinogen Ur Leukocyte Esterase Urine WBC (Auto) Urine Opiates Screen Negative Urine Methadone Screen Negative Ur Barbiturates Screen Negative Ur Phencyclidine Scrn Negative Ur Amphetamines Screen Negative U Benzodiazepines Scrn Negative U Oth Cocaine Metabols Negative U Cannabinoids Screen Negative Influenza Typ A,B (EIA) Assessment & Plan (1) Cellulitis of thigh Assessment and Plan: Fever of 100.4 No white count noted. Vanc and Zosyn started January 02, 2018. F/U Vanc trough on January 04 Florastor on board Patient received a fluid bolus Continue maintenance fluids at 100 cc/hr LE Dopplers- Negative Tylenol PRN for fever F/U ESR , CBC and CMP No otherwise known contact with an agent that could have triggered this presentation Status: Acute (2) Prophylactic measure Assessment and Plan: Lovenox 30 mg SC No GI Prophylaxis at this point Hold off on SCDs at this point due to unclear etiology of leg pain Status: Acute
[2018-01-02 17:47] VITALS: RESP 20
[2018-01-02] MEDS: Sodium Chloride 0.9% 1,000 ML IV SCH (18:22)
[2018-01-02] MEDS: Saccharomyces Boulardi 250 mg Cap PO SCH (18:27)
[2018-01-02] MEDS: Vancomycin 1 gm/NS 200 ml 1 GM/200 ML BAG IVPB SCH (19:35)
[2018-01-02] MEDS: Piperacill/Tazo 3.375gm in Dex 3.375 GM/50 ML BAG IVPB SCH (20:30)
[2018-01-03] MEDS: Piperacill/Tazo 3.375gm in Dex 3.375 GM/50 ML BAG IVPB SCH ×4 (02:03→20:35)
[2018-01-03] MEDS: Sodium Chloride 0.9% 1,000 ML IV SCH ×4 (04:15→23:30)
[2018-01-03] MEDS: Vancomycin 1 gm/NS 200 ml 1 GM/200 ML BAG IVPB SCH ×2 (06:40→19:00)
[2018-01-03 07:39] LABS: BASO % 0.3 % (0.0-2.0); LYMPH % 16.6 % (20.0-40.0); MEAN CELL VOLUME 81.1 fL (80.0-94.0); MEAN CORPUSCULAR HEMOGLOBIN 28.9 pg (27.0-31.0); MEAN CORPUSCULAR HGB CONC 35.6 g/dL (33.0-37.0); MEAN PLATELET VOLUME 7.5 fL (7.2-11.7); MONO # 0.3 K/uL (0.0-0.8); MONO % 5.4 % (0.0-10.0); NEUT # 4.6 K/uL (1.8-7.0); NEUT % 77.7 % (50.0-75.0); RBC 4.51 Mil/uL (4.40-5.90); WHITE BLOOD COUNT 5.9 K/uL (4.8-10.8)
[2018-01-03 07:51] LABS: ALB/GLOB RATIO 0.9 (1.0-2.1); ALBUMIN 2.6 g/dL (3.5-5.0); ALT/SGPT 18 U/L (21-72); AST/SGOT 18 U/L (17-59); BLOOD UREA NITROGEN 11 mg/dL (9-20); CALCIUM 7.5 mg/dl (8.6-10.4); GFR AFRICAN-AMERICAN > 60; GFR NON-AFRICAN AMERICAN > 60
[2018-01-03] MEDS: Saccharomyces Boulardi 250 mg Cap PO SCH ×2 (09:24→18:21)
[2018-01-03] MEDS ORDERED: Enoxaparin 30 mg Syringe SC SCH (10:00)
--- NOTE | 2018-01-03 11:05 | VASCLAB ---
PROCEDURE: Right Lower Extremity Venous Duplex Exam. HISTORY: RLE pain, swelling, redness PRIORS: Right lower extremity ultrasound dated 11/14/2017. TECHNIQUE: Right common femoral, femoral, popliteal and posterior tibial, peroneal and great saphenous veins were evaluated. Flow was assessed with color Doppler, compressibility, assessment of phasic flow and augmentation response. Report prepared by Luis Eduardo Dong, RAPHAEL, RVT FINDINGS: RIGHT: 1. Common Femoral Vein: 1.1. Compressibility - Fully compressible: Thrombus - None: Flow - Phasic: Augmentation -Normal: Reflux - None. 2. Femoral Vein: 2.1. Compressibility - Fully compressible: Thrombus - None: Flow - Phasic: Augmentation -Normal: Reflux - None. 3. Popliteal Vein: 3.1. Compressibility - Fully compressible: Thrombus - None: Flow - Phasic: Augmentation -Normal: Reflux - None. 4. Posterior Tibial Vein: 4.1. Compressibility - Fully compressible: Thrombus - None: Flow - Phasic: Augmentation -Normal: Reflux - None. 5. Peroneal Vein: 5.1. Compressibility - Fully compressible: Thrombus - None: Flow - Phasic: Augmentation -Normal: Reflux - None. 6. Great Saphenous Vein: 6.1. Compressibility - Fully compressible: Thrombus -None: Flow - Phasic: Augmentation - Normal: Reflux - None. OTHER FINDINGS: IMPRESSION: No evidence of deep or superficial vein thrombosis of the right lower extremity with excellent venous flow. Normal valve function noted of the right side. Normal venous flow noted in the left common femoral vein.
--- NOTE | 2018-01-03 11:17 | CP.PCM.PN ---
Subjective - Date & Time of Evaluation Date of Evaluation: 01/03/18 Time of Evaluation: 11:15 - Subjective Subjective: patient seen and examined at bedside. Doing well still complaining of pain in the R. thigh, states this started after he went to bed angry from family issues No other complaints at this time Objective - Vital Signs/Intake and Output Vital Signs (last 24 hours): Temp Pulse Resp BP Pulse Ox 99.4 F 100 H 20 100/60 94 L 01/03/18 05:35 01/02/18 23:34 01/02/18 23:34 01/02/18 23:34 01/03/18 05:25 Intake and Output: 01/03/18 01/03/18 06:59 18:59 Intake Total 1650 Output Total 1050 Balance 600 - Medications Medications: Current Medications Acetaminophen (Tylenol 325mg Tab) 650 mg PO Q6 PRN PRN Reason: Fever >100.4 F Last Admin: 01/03/18 00:10 Dose: 650 mg Enoxaparin Sodium (Lovenox) 40 mg SC DAILY [facility] Sodium Chloride (Sodium Chloride 0.9%) 1,000 mls @ 100 mls/hr IV .Q10H [facility] Last Admin: 01/03/18 09:28 Dose: 100 mls/hr Piperacillin Sod/Tazobactam Sod (Zosyn 3.375 Gm Iv Premix) 3.375 gm in 50 mls @ 100 mls/hr IVPB Q6H [facility] PRN Reason: Protocol Last Admin: 01/03/18 07:45 Dose: 100 mls/hr Vancomycin/Sodium Chloride (Vancomycin 1 Gm/Ns 200 Ml) 1 gm in 200 mls @ 133 mls/hr IVPB Q12H [facility] PRN Reason: Protocol Stop: 01/07/18 19:01 Last Admin: 01/03/18 06:40 Dose: 133 mls/hr Saccharomyces Boulardii (Florastor) 250 mg PO BID [facility] Last Admin: 01/03/18 09:24 Dose: 250 mg - Labs Labs: 01/03/18 07:14 01/03/18 07:14 - Constitutional Appears: Well - Head Exam Head Exam: ATRAUMATIC, NORMAL INSPECTION, NORMOCEPHALIC - Eye Exam Eye Exam: EOMI, Normal appearance, PERRL Pupil Exam: NORMAL ACCOMODATION, PERRL - ENT Exam ENT Exam: Mucous Membranes Moist, Normal Exam - Neck Exam Neck Exam: Full ROM, Normal Inspection. absent: Lymphadenopathy - Respiratory Exam Respiratory Exam: Clear to Ausculation Bilateral, NORMAL BREATHING PATTERN - Cardiovascular Exam Cardiovascular Exam: REGULAR RHYTHM, +S1, +S2. absent: Murmur - GI/Abdominal Exam GI & Abdominal Exam: Soft, Normal Bowel Sounds. absent: Tenderness - Extremities Exam Extremities Exam: Full ROM, Normal Capillary Refill, Normal Inspection. absent : Joint Swelling, Pedal Edema Additional comments: swelling of the R. thigh with increased redness, tender to palpation - Back Exam Back Exam: NORMAL INSPECTION - Neurological Exam Neurological Exam: Alert, Awake, CN II-XII Intact, Normal Gait, Oriented x3 - Psychiatric Exam Psychiatric exam: Normal Affect, Normal Mood - Skin Skin Exam: Dry, Intact, Normal Color, Warm Assessment and Plan - Assessment and Plan (Free Text) Assessment: (1) Cellulitis of thigh Assessment and Plan: Vanc and Zosyn started January 02, 2018. Florastor on board LE Dopplers- Negative CT showing soft tissue swelling and one enlarged node but no collection Status: Acute (2) Prophylactic measure Assessment and Plan: Lovenox 40 mg SC No GI Prophylaxis at this point Hold off on SCDs at this point due to unclear etiology Status: Acute
[2018-01-03] MEDS ORDERED: Iodixanol 320 MG/ML 100 ML BOTTLE IV ONE (15:19)
--- NOTE | 2018-01-03 16:42 | CT ---
PROCEDURE: CT right lower extremity HISTORY: soft tisue swelling and fever w/no apparent cause COMPARISON: Not available TECHNIQUE: 2.5 mm contiguous axial sections were acquired through the right lower extremity, from the hip to the knee. Sagittal and coronal images were reformatted from the axial scan. Contrast administered: 100 mL Visipaque 320 Total exam DLP: 1081.[address] exam was performed using 1 or more of the following dose reduction techniques: Automated exposure control, adjustment of the mA and/or kV according to patient size, and/or use of iterative reconstruction technique. FINDINGS: There is no evidence of abscess. There is cutaneous thickening and minimal subcutaneous edema seen over the anterior upper thigh which may reflect cellulitis. Correlate clinically. There is right inguinal lymphadenopathy with the largest node measuring roughly 1.9 cm diameter. The muscles are unremarkable in appearance. There is no periosteal reaction or osseous erosion appreciated. There is no lytic or blastic osseous lesion. IMPRESSION: Possible cellulitis of the anterior right thigh. No evidence of abscess. Right inguinal lymphadenopathy noted. Otherwise unremarkable examination.
[2018-01-04] MEDS: Piperacill/Tazo 3.375gm in Dex 3.375 GM/50 ML BAG IVPB SCH ×4 (01:57→20:18)
[2018-01-04] MEDS: Vancomycin 1 gm/NS 200 ml 1 GM/200 ML BAG IVPB SCH ×2 (06:55→19:00)
[2018-01-04] MEDS: Saccharomyces Boulardi 250 mg Cap PO SCH ×2 (09:11→17:47)
[2018-01-04] MEDS: Enoxaparin 40 mg Syringe SC SCH (09:12)
--- NOTE | 2018-01-04 13:13 | CP.PCM.PN ---
Subjective - Date & Time of Evaluation Date of Evaluation: 01/04/18 Time of Evaluation: 13:11 - Subjective Subjective: Patient seen and examined at bedside doing well states pain in the leg is resolving No other complaints at this time Objective - Vital Signs/Intake and Output Vital Signs (last 24 hours): Temp Pulse Resp BP Pulse Ox 98.4 F 105 H 20 98/64 L 95 01/04/18 08:00 01/04/18 08:00 01/04/18 08:00 01/04/18 08:00 01/04/18 08:00 Intake and Output: 01/04/18 01/04/18 06:59 18:59 Intake Total 2250 Balance 2250 - Medications Medications: Current Medications Acetaminophen (Tylenol 325mg Tab) 650 mg PO Q6 PRN PRN Reason: Fever >100.4 F Last Admin: 01/03/18 00:10 Dose: 650 mg Enoxaparin Sodium (Lovenox) 40 mg SC DAILY [facility] Last Admin: 01/04/18 09:12 Dose: 40 mg Sodium Chloride (Sodium Chloride 0.9%) 1,000 mls @ 100 mls/hr IV .Q10H [facility] Last Admin: 01/03/18 23:30 Dose: Not Given Piperacillin Sod/Tazobactam Sod (Zosyn 3.375 Gm Iv Premix) 3.375 gm in 50 mls @ 100 mls/hr IVPB Q6H [facility] PRN Reason: Protocol Last Admin: 01/04/18 07:45 Dose: 100 mls/hr Vancomycin/Sodium Chloride (Vancomycin 1 Gm/Ns 200 Ml) 1 gm in 200 mls @ 133 mls/hr IVPB Q12H [facility] PRN Reason: Protocol Stop: 01/07/18 19:01 Last Admin: 01/04/18 06:55 Dose: 133 mls/hr Saccharomyces Boulardii (Florastor) 250 mg PO BID [facility] Last Admin: 01/04/18 09:11 Dose: 250 mg - Labs Labs: 01/03/18 07:14 01/03/18 07:14 - Additional Findings Additional findings: - Constitutional Appears: Well - Head Exam Head Exam: ATRAUMATIC, NORMAL INSPECTION, NORMOCEPHALIC - Eye Exam Eye Exam: EOMI, Normal appearance, PERRL Pupil Exam: NORMAL ACCOMODATION, PERRL - ENT Exam ENT Exam: Mucous Membranes Moist, Normal Exam - Neck Exam Neck Exam: Full ROM, Normal Inspection. absent: Lymphadenopathy - Respiratory Exam Respiratory Exam: Clear to Ausculation Bilateral, NORMAL BREATHING PATTERN - Cardiovascular Exam Cardiovascular Exam: REGULAR RHYTHM, +S1, +S2. absent: Murmur - GI/Abdominal Exam GI & Abdominal Exam: Soft, Normal Bowel Sounds. absent: Tenderness - Extremities Exam Extremities Exam: Full ROM, Normal Capillary Refill, Normal Inspection. absent : Joint Swelling, Pedal Edema Additional comments: swelling of the R. thigh with increased redness, tender to palpation - Back Exam Back Exam: NORMAL INSPECTION - Neurological Exam Neurological Exam: Alert, Awake, CN II-XII Intact, Normal Gait, Oriented x3 - Psychiatric Exam Psychiatric exam: Normal Affect, Normal Mood - Skin Skin Exam: Dry, Intact, Normal Color, Warm Assessment and Plan - Assessment and Plan (Free Text) Assessment: (1) Cellulitis of thigh Assessment and Plan: Vanc and Zosyn started January 02, 2018. Florastor on board LE Dopplers- Negative CT showing soft tissue swelling and one enlarged node but no collection Status: Acute (2) Prophylactic measure Assessment and Plan: Lovenox 40 mg SC No GI Prophylaxis at this point Hold off on SCDs at this point due to unclear etiology Status: Acute
[2018-01-04] MEDS: Sodium Chloride 0.9% 1,000 ML IV SCH (20:16)
[2018-01-05] MEDS: Sodium Chloride 0.9% 1,000 ML IV SCH ×4 (01:05→15:53)
[2018-01-05] MEDS: Piperacill/Tazo 3.375gm in Dex 3.375 GM/50 ML BAG IVPB SCH ×4 (02:00→20:50)
[2018-01-05] MEDS: Vancomycin 1 gm/NS 200 ml 1 GM/200 ML BAG IVPB SCH ×2 (06:58→19:56)
--- NOTE | 2018-01-05 07:31 | CP.PCM.PN ---
<Skylar Franco - Last Filed: 01/05/18 14:17> Subjective - Date & Time of Evaluation Date of Evaluation: 01/05/18 Time of Evaluation: 11:35 - Subjective Subjective: PGY 2 Med Note- Dr. Tiffanie Nunn's service (covering for Dr. Wilburn) Patient seen and examined in no acute distress. Patient still has some swelling of the right upper thigh. He states that the pain has decreased. No fevers overnight per nursing. Objective - Vital Signs/Intake and Output Vital Signs (last 24 hours): Temp Pulse Resp BP Pulse Ox 97.9 F 80 20 106/71 96 01/05/18 00:00 01/05/18 00:00 01/05/18 00:00 01/05/18 00:00 01/05/18 00:00 Intake and Output: 01/05/18 01/05/18 06:59 18:59 Intake Total 2300 Balance 2300 - Medications Medications: Current Medications Acetaminophen (Tylenol 325mg Tab) 650 mg PO Q6 PRN PRN Reason: Fever >100.4 F Last Admin: 01/03/18 00:10 Dose: 650 mg Enoxaparin Sodium (Lovenox) 40 mg SC DAILY [facility] Last Admin: 01/04/18 09:12 Dose: 40 mg Sodium Chloride (Sodium Chloride 0.9%) 1,000 mls @ 100 mls/hr IV .Q10H [facility] Last Admin: 01/05/18 01:05 Dose: 100 mls/hr Piperacillin Sod/Tazobactam Sod (Zosyn 3.375 Gm Iv Premix) 3.375 gm in 50 mls @ 100 mls/hr IVPB Q6H [facility] PRN Reason: Protocol Last Admin: 01/05/18 02:00 Dose: 100 mls/hr Vancomycin/Sodium Chloride (Vancomycin 1 Gm/Ns 200 Ml) 1 gm in 200 mls @ 133 mls/hr IVPB Q12H [facility] PRN Reason: Protocol Stop: 01/07/18 19:01 Last Admin: 01/05/18 06:58 Dose: 133 mls/hr Saccharomyces Boulardii (Florastor) 250 mg PO BID [facility] Last Admin: 01/04/18 17:47 Dose: 250 mg - Labs Labs: 01/03/18 07:14 01/03/18 07:14 - Constitutional Appears: Non-toxic, No Acute Distress - Head Exam Head Exam: ATRAUMATIC, NORMAL INSPECTION - Eye Exam Eye Exam: EOMI, Normal appearance, PERRL Pupil Exam: NORMAL ACCOMODATION - ENT Exam ENT Exam: Mucous Membranes Moist - Neck Exam Neck Exam: Full ROM - Respiratory Exam Respiratory Exam: NORMAL BREATHING PATTERN. absent: Wheezes - Cardiovascular Exam Cardiovascular Exam: +S1, +S2 - GI/Abdominal Exam GI & Abdominal Exam: Soft, Normal Bowel Sounds - Rectal Exam Rectal Exam: NORMAL INSPECTION - Extremities Exam Extremities Exam: Full ROM, Pedal Edema, Tenderness - Neurological Exam Neurological Exam: Alert, Awake, Normal Gait, Oriented x3 - Psychiatric Exam Psychiatric exam: Normal Affect, Normal Mood - Skin Skin Exam: Dry, Normal Color, Warm Assessment and Plan (1) Cellulitis of thigh Status: Acute (2) Prophylactic measure Status: Acute - Assessment and Plan (Free Text) Assessment: (1) Cellulitis of thigh Assessment and Plan: Afebrile No white count noted. Vanc and Zosyn started January 02, 2018. Vanc trough 8.4 Florastor on board Maintenance fluids at 100 cc/hr LE Dopplers- Negative Tylenol PRN for fever ESR 8 Blood cultures negative Status: Acute (2) Prophylactic measure Assessment and Plan: Lovenox 30 mg SC No GI Prophylaxis at this point Hold off on SCDs at this point due to unclear etiology of leg pain. Status: Acute Likely DC tomorrow on PO antibiotics. Discussed with attending. Management and planning per Dr. Nunn <Nisha Nunn S - Last Filed: 01/06/18 14:18> Objective - Vital Signs/Intake and Output Vital Signs (last 24 hours): Temp Pulse Resp BP Pulse Ox 98.2 F 98 H 20 109/69 97 01/06/18 09:00 01/06/18 09:00 01/06/18 09:00 01/06/18 09:00 01/06/18 09:00 Intake and Output: 01/06/18 01/06/18 06:59 18:59 Intake Total 1550 Balance 1550 - Medications Medications: Current Medications Acetaminophen (Tylenol 325mg Tab) 650 mg PO Q6 PRN PRN Reason: Fever >100.4 F Last Admin: 01/03/18 00:10 Dose: 650 mg Enoxaparin Sodium (Lovenox) 40 mg SC DAILY [facility] Last Admin: 01/06/18 10:27 Dose: 40 mg Saccharomyces Boulardii (Florastor) 250 mg PO BID [facility] Last Admin: 01/06/18 10:27 Dose: 250 mg - Labs Labs: 01/06/18 06:28 01/06/18 06:25 Attending/Attestation - Attestation I have personally seen and examined this patient.: Yes I have reviewed all pertinent clinical information, including history, physical exam and plan: Yes Notes (Text): Case seen and discussed with the staff and resident Patient cellulitis got better especially on the thigh and the groin area with IV antibiotic will give 1 more day of IV antibiotic possible discharge tomorrow on p.o. Augmentin
[2018-01-05] MEDS: Enoxaparin 40 mg Syringe SC SCH (09:51)
[2018-01-05] MEDS: Saccharomyces Boulardi 250 mg Cap PO SCH ×2 (09:51→17:46)
[2018-01-05 23:53] VITALS: O2SAT 97
[2018-01-06 06:34] LABS: BASO % 0.9 % (0.0-2.0); EOS # 0.4 K/uL (0.0-0.7); EOS % 9.6 % (0.0-4.0); HEMOGLOBIN 12.7 g/dL (12.0-18.0); LYMPH # 1.7 K/uL (1.0-4.3); LYMPH % 45.9 % (20.0-40.0); MEAN CELL VOLUME 81.5 fL (80.0-94.0); MEAN CORPUSCULAR HEMOGLOBIN 28.4 pg (27.0-31.0); MEAN CORPUSCULAR HGB CONC 34.9 g/dL (33.0-37.0); MEAN PLATELET VOLUME 7.5 fL (7.2-11.7); MONO # 0.4 K/uL (0.0-0.8); MONO % 9.9 % (0.0-10.0); NEUT # 1.3 K/uL (1.8-7.0); NEUT % 33.7 % (50.0-75.0); NRBC % 0.1 % (0.0-2.0); RBC 4.47 Mil/uL (4.40-5.90); RED CELL DISTRIBUTION WIDTH 13.8 % (11.5-14.5); WHITE BLOOD COUNT 3.8 K/uL (4.8-10.8)
[2018-01-06 06:48] LABS: ALB/GLOB RATIO 0.9 (1.0-2.1); ALBUMIN 2.7 g/dL (3.5-5.0); ALT/SGPT 23 U/L (21-72); AST/SGOT 17 U/L (17-59); BLOOD UREA NITROGEN 10 mg/dL (9-20); GFR AFRICAN-AMERICAN > 60; GFR NON-AFRICAN AMERICAN > 60
[2018-01-06 09:43] VITALS: BP 109/69; PULSE 98; TEMP 98.2
[2018-01-06] MEDS: Enoxaparin 40 mg Syringe SC SCH (10:27)
[2018-01-06] MEDS: Saccharomyces Boulardi 250 mg Cap PO SCH (10:27)
--- NOTE | 2018-01-06 14:19 | CP.PCM.PN ---
Subjective - Date & Time of Evaluation Date of Evaluation: 01/06/18 Time of Evaluation: 09:00 Objective - Vital Signs/Intake and Output Vital Signs (last 24 hours): Temp Pulse Resp BP Pulse Ox 98.2 F 98 H 20 109/69 97 01/06/18 09:00 01/06/18 09:00 01/06/18 09:00 01/06/18 09:00 01/06/18 09:00 Intake and Output: 01/06/18 01/06/18 06:59 18:59 Intake Total 1550 Balance 1550 - Medications Medications: Current Medications Acetaminophen (Tylenol 325mg Tab) 650 mg PO Q6 PRN PRN Reason: Fever >100.4 F Last Admin: 01/03/18 00:10 Dose: 650 mg Enoxaparin Sodium (Lovenox) 40 mg SC DAILY [facility] Last Admin: 01/06/18 10:27 Dose: 40 mg Saccharomyces Boulardii (Florastor) 250 mg PO BID [facility] Last Admin: 01/06/18 10:27 Dose: 250 mg - Labs Labs: 01/06/18 06:28 01/06/18 06:25
--- NOTE | 2018-01-06 17:15 | CP.PCM.PN ---
Subjective - Date & Time of Evaluation Date of Evaluation: 01/06/18 Time of Evaluation: 11:00 - Subjective Subjective: Alert, orientedx3, denies acute pain or distress. Objective - Vital Signs/Intake and Output Vital Signs (last 24 hours): Temp Pulse Resp BP Pulse Ox 98.2 F 98 H 20 109/69 97 01/06/18 09:00 01/06/18 09:00 01/06/18 09:00 01/06/18 09:00 01/06/18 09:00 Intake and Output: 01/06/18 01/06/18 06:59 18:59 Intake Total 1550 600 Balance 1550 600 - Labs Labs: 01/06/18 06:28 01/06/18 06:25 Assessment and Plan - Assessment and Plan (Free Text) Assessment: 52 year old male admitted with pain and swelling to his leg and thigh, cellulitis, seen and examined. Alert and orientedx3, denies anymore pain or distress. swelling and redness has improved. Discussed with DR Cecilia Nunn, plan to do discharge home on lasix and augmentin. Advised to follow up with PMD in 1 week.
== END 2018-01-06 16:30 | disposition home or self-care (01) | DRG 278 ==
LOC: C.ER 11:33 → C.9E 14:40 → C.3T 16:48 → OBSVTOIN 01-04 15:56
PROVIDERS: ADMIT Internal Medicine; ATTEND Internal Medicine
DX: L03.115 Cellulitis of right lower limb (principal); J45.909 Unspecified asthma, uncomplicated; M17.10 Unilateral primary osteoarthritis, unspecified knee; Z87.891 Personal history of nicotine dependence

== ENCOUNTER 2018-05-08 20:10 | Emergency (ER) | payer MEDICAID ==
[2018-05-08 20:10] VITALS: BMI 29.0
[2018-05-08 20:34] VITALS: BP 130/86; PULSE 120; TEMP 99.8; O2SAT 96
--- NOTE | 2018-05-08 20:45 | C.PDOC ---
History Of Present Illness 52yo male, otherwise well and with no past medical history, comes to ER with complaints of left upper quadrant abdominal pain since 6PM tonight after eating spicy food. He denies any associated nausea, vomiting, constipation or diarrhea. He states he has a throbbing/burning sensation. He denies any dark or bloody stools, NSAID use and states he did not take any medications for his symptoms. Patient offers no additional medical complaints. Time Seen by Provider: 05/08/18 20:38 Chief Complaint (Nursing): Abdominal Pain History Per: Patient History/Exam Limitations: no limitations Onset/Duration Of Symptoms: Hrs Current Symptoms Are (Timing): Still Present Location Of Pain/Discomfort: LUQ Radiation Of Pain To:: None Quality Of Discomfort: Burning, "Pain" Associated Symptoms: denies: Fever, Chills, Nausea, Vomiting, Diarrhea, Back Pain, Chest Pain, Constipation, Urinary Symptoms Past Medical History Reviewed: Historical Data, Nursing Documentation, Vital Signs Vital Signs: Last Vital Signs Temp 99.8 F H 05/08/18 20:29 Pulse 120 H 05/08/18 20:29 Resp 16 05/08/18 22:10 BP 130/86 05/08/18 20:29 Pulse Ox 96 05/08/18 21:30 - Medical History PMH: Arthritis (knee), Asthma Denies: Chronic Kidney Disease Surgical History: No Surg Hx Family History: States: Unknown Family Hx - Social History Hx Tobacco Use: No Hx Alcohol Use: No Hx Substance Use: No - Immunization History Hx Tetanus Toxoid Vaccination: No Hx Influenza Vaccination: No Hx Pneumococcal Vaccination: No Review Of Systems Except As Marked, All Systems Reviewed And Found Negative. Constitutional: Negative for: Fever, Chills Cardiovascular: Negative for: Chest Pain Respiratory: Negative for: Shortness of Breath Gastrointestinal: Positive for: Abdominal Pain. Negative for: Nausea, Vomiting , Diarrhea, Constipation, Melena, Hematochezia Physical Exam - Physical Exam Appears: Non-toxic, No Acute Distress Skin: Normal Color, Warm, Dry Head: Atraumatic, Normacephalic Eye(s): bilateral: Normal Inspection Neck: Normal, Supple Chest: Symmetrical Cardiovascular: Rhythm Regular Respiratory: Normal Breath Sounds Gastrointestinal/Abdominal: Soft, Tenderness (left upper quadrant), No Mass, No Guarding, No Rebound Back: Normal Inspection Extremity: Normal ROM, No Pedal Edema Neurological/Psych: Oriented x3 ED Course And Treatment - Laboratory Results Result Diagrams: 05/08/18 21:17 05/08/18 21:17 O2 Sat by Pulse Oximetry: 96 Medical Decision Making Medical Decision Makin yr old male p/w LUQ abdominal pain. N/V x1 in the ED. Will likely require CT given LUQ pain w/ vomiting, r/out SBO. Pt is requesting to leave AMA. He states that after vomiting he is feeling much better and is now pain free. On my exam pt is noted to be pain free w/ out rebound tenderness. HE notes that he has GERD. However, given previous pain, i reccomended CT + serial exams to make sure pt did not have an alternative diagnosis. I informed pt of importance of CT scan given the possibility of bowel obstruction, choleycystitis, bowel perforation and the risk of leaving AMA including and disability. Pt notes that he is aware of the risks of and disability from the aformentioned and is willing to take the risk. On my exam pt is noted to have clear affect, ambulating well, AOx3 and denies any SI or HI. Given patients wishes, will sign out AMA and inform pt to return at any point in time for completion of further studies. Disposition - Disposition Disposition: AGAINST MEDICAL ADVICE Disposition Time: 22:10 Condition: GUARDED Forms: [facility] (Irish) - Clinical Impression Clinical Impression: Abdominal discomfort - Scribe Statement The provider has reviewed the documentation as recorded by the Mena Trinidad Provider Attestation: All medical record entries made by the Anastasiiaibshira were at my direction and personally dictated by me. I have reviewed the chart and agree that the record accurately reflects my personal performance of the history, physical exam, medical decision making, and the department course for this patient. I have also personally directed, reviewed, and agree with the discharge instructions and disposition.
[2018-05-08] MEDS ORDERED: Aluminum Hydroxide/Magnesium Hydroxide Susp (30 mL) PO ONE (21:05)
[2018-05-08] MEDS ORDERED: Sodium Chloride 0.9% 1,000 ML IV SCH (21:15)
[2018-05-08] MEDS ORDERED: Aluminum Hydroxide/Magnesium Hydroxide Susp (30 mL) ONE (21:19)
[2018-05-08] MEDS ORDERED: Sodium Chloride 0.9% 1,000 ML ONE (21:20)
[2018-05-08 21:30] LABS: BASO % 0.4 % (0.0-2.0); EOS # 0.1 K/uL (0.0-0.7); EOS % 1.8 % (0.0-4.0); HEMOGLOBIN 14.4 g/dL (12.0-18.0); LYMPH # 0.8 K/uL (1.0-4.3); LYMPH % 17.3 % (20.0-40.0); MEAN CELL VOLUME 80.8 fL (80.0-94.0); MEAN CORPUSCULAR HEMOGLOBIN 28.1 pg (27.0-31.0); MEAN CORPUSCULAR HGB CONC 34.8 g/dL (33.0-37.0); MEAN PLATELET VOLUME 7.1 fL (7.2-11.7); MONO # 0.3 K/uL (0.0-0.8); MONO % 6.1 % (0.0-10.0); NEUT # 3.5 K/uL (1.8-7.0); NEUT % 74.4 % (50.0-75.0); NRBC % 0.1 % (0.0-2.0); RBC 5.13 Mil/uL (4.40-5.90); RED CELL DISTRIBUTION WIDTH 13.5 % (11.5-14.5); WHITE BLOOD COUNT 4.7 K/uL (4.8-10.8)
[2018-05-08 21:33] LABS: ALB/GLOB RATIO 1.2 (1.0-2.1); ALBUMIN 2.8 g/dL (3.5-5.0); ALT/SGPT 33 U/L (21-72); AST/SGOT 16 U/L (17-59); BLOOD UREA NITROGEN 15 mg/dL (9-20); GFR NON-AFRICAN AMERICAN > 60; LIPASE 18 U/L (23-300)
[2018-05-08 21:40] LABS: VENOUS BLOOD GAS BASE EXCESS 2.2 mmol/L (0.0-2.0); VENOUS BLOOD GAS PCO2 43 mmHg (40-60); VENOUS BLOOD GAS PO2 24 mm/Hg (30-55); VENOUS BLOOD PH 7.41 (7.32-7.43)
[2018-05-08] MEDS ORDERED: Iohexol 300 100 ML IJ ONE (21:52)
[2018-05-08 22:11] VITALS: RESP 16
== END 2018-05-08 22:10 | disposition left against medical advice (07) ==
LOC: C.ER 20:10
DX: R10.12 Left upper quadrant pain (principal)
CPT/HCPCS: 80053; 82803; 83690; 85025; 96374; 96375; 99284; J2405; J7030

== ENCOUNTER 2018-08-25 22:35 | Emergency (ER) | payer MEDICAID ==
[2018-08-25 22:36] VITALS: BMI 29.0
[2018-08-25] MEDS ORDERED: Albuterol-Ipratrop 3 mg / 0.5 (3 ml) UD ONE (22:48)
[2018-08-25] MEDS ORDERED: Albuterol-Ipratrop 3 mg / 0.5 (3 ml) UD INH STA (23:05)
[2018-08-25] MEDS ORDERED: Albuterol 0.083% Inhal Sol (2.5 mg/3 mL) UD IH STA (23:05)
[2018-08-25 23:36] LABS: BASO # 0.1 K/uL (0.0-0.2); BASO % 1.1 % (0.0-2.0); EOS # 0.3 K/uL (0.0-0.7); HEMOGLOBIN 14.3 g/dL (12.0-18.0); LYMPH # 2.8 K/uL (1.0-4.3); LYMPH % 42.5 % (20.0-40.0); MEAN CELL VOLUME 83.1 fL (80.0-94.0); MEAN CORPUSCULAR HEMOGLOBIN 28.2 pg (27.0-31.0); MEAN CORPUSCULAR HGB CONC 33.9 g/dL (33.0-37.0); MEAN PLATELET VOLUME 7.1 fL (7.2-11.7); MONO # 0.6 K/uL (0.0-0.8); MONO % 9.7 % (0.0-10.0); NEUT # 2.7 K/uL (1.8-7.0); NEUT % 41.7 % (50.0-75.0); NRBC % 0.1 % (0.0-2.0); RBC 5.09 Mil/uL (4.40-5.90); RED CELL DISTRIBUTION WIDTH 13.5 % (11.5-14.5); WHITE BLOOD COUNT 6.5 K/uL (4.8-10.8)
[2018-08-25 23:47] LABS: ALB/GLOB RATIO 1.1 (1.0-2.1); ALBUMIN 2.9 g/dL (3.5-5.0); ALT/SGPT 40 U/L (21-72); AST/SGOT 21 U/L (17-59); BLOOD UREA NITROGEN 22 mg/dL (9-20); CALCIUM 7.7 mg/dl (8.6-10.4); GFR NON-AFRICAN AMERICAN > 60
[2018-08-25] MEDS ORDERED: Albuterol 0.042% Inhal Sol (1.25 mg/3 mL) UD ONE (23:54)
[2018-08-25] MEDS ORDERED: Albuterol 0.083% Inhal Sol (2.5 mg/3 mL) UD ONE (23:55)
[2018-08-25 23:59] LABS: B-TYPE NATRIURETIC PEPTIDE 29.4 pg/mL (0-900); CK-MB 0.26 ng/mL (0.0-3.38)
[2018-08-26] MEDS ORDERED: Albuterol 0.083% Inhal Sol (2.5 mg/3 mL) UD IH STA (00:28)
--- NOTE | 2018-08-26 00:39 | C.PDOC ---
History Of Present Illness 53 year old male presents to the ER with a complaint of runny nose, sore throat, nonproductive cough for one week and wheezing that began today. Denies chest pain, palpitations, fever, leg edema, or abdominal pain. Time Seen by Provider: 08/25/18 22:44 Chief Complaint (Nursing): Shortness Of Breath History Per: Patient History/Exam Limitations: no limitations Onset/Duration Of Symptoms: Days (1 week) Current Symptoms Are (Timing): Still Present Initiating Event: Upper Respiratory Illness Current Respiratory Medications: See Home Med List Associated Symptoms: denies: Fever, Chest Pain, Other (Palpitations, leg edema, abdominal pain) Recent travel outside of the [place]: No Past Medical History Reviewed: Historical Data, Nursing Documentation, Vital Signs Vital Signs: Last Vital Signs Temp 97.8 F 08/25/18 22:53 Pulse 92 H 08/25/18 22:53 Resp 16 08/25/18 23:01 BP 130/91 H 08/25/18 22:53 Pulse Ox 94 L 08/25/18 22:53 - Medical History PMH: Arthritis (knee), Asthma Denies: Chronic Kidney Disease Family History: States: Unknown Family Hx - Social History Hx Tobacco Use: No Hx Alcohol Use: No Hx Substance Use: No - Immunization History Hx Tetanus Toxoid Vaccination: No Hx Influenza Vaccination: No Hx Pneumococcal Vaccination: No Review Of Systems Except As Marked, All Systems Reviewed And Found Negative. ENT: Positive for: Nose Discharge, Throat Pain Respiratory: Positive for: Cough, Shortness of Breath, Wheezing Physical Exam - Physical Exam Appears: Non-toxic, Other (Speaking in complete sentences) Skin: Normal Color, Warm, Dry Head: Atraumatic, Normacephalic Eye(s): bilateral: Normal Inspection Oral Mucosa: Moist Throat: Normal, No Erythema, No Exudate Neck: Normal, Supple Chest: Symmetrical, No Tenderness Cardiovascular: Rhythm Regular Respiratory: No Accessory Muscle Use, Wheezing (Bilateral expiratory) Gastrointestinal/Abdominal: Soft, No Tenderness Extremity: Normal ROM (x4), No Pedal Edema Neurological/Psych: Oriented x3, Normal Speech ED Course And Treatment - Laboratory Results Result Diagrams: 08/25/18 23:31 08/25/18 23:31 ECG: Interpreted By Me, Viewed By Me ECG Rhythm: Sinus Tachycardia ECG Interpretation: Normal Interpretation Of ECG: Normal axis, no acute ST/T wave changes Rate From EC O2 Sat by Pulse Oximetry: 94 (Room air) Pulse Ox Interpretation: Normal - Radiology CXR: Interpreted by Me, Viewed By Me CXR Interpretation: Yes: No Acute Disease. No: Infiltrates Progress Note: EKG, blood work, and CXR ordered. Solumedrol, albuterol, and duoneb administered. On reevaluation, patient reports improvement after treatments, will discharge home. Disposition Counseled Patient/Family Regarding: Studies Performed, Diagnosis, Need For Followup, Rx Given - Disposition Referrals: Patrick Jean Baptiste MD [Primary Care Provider] - Disposition: HOME/ ROUTINE Disposition Time: 12:50 Condition: STABLE Additional Instructions: FOLLOW UP WITH YOUR DOCTOR IN 1-2 DAYS RETURN TO IF YOUR SYMPTOMS WORSEN USE MEDICATIONS DIRECTED Prescriptions: Albuterol 0.5% [Albuterol 0.5% Inhal Soumya (2.5 mg/0.5 ml) UD] 2.5 mg IH Q6 PRN #1 bottle PRN Reason: Wheezing predniSONE [predniSONE Tab] 40 mg PO DAILY #8 tab Instructions: Asthma, Adult (DC) Forms: [employer] (Turkish) Print Language: TELUGU - Clinical Impression Clinical Impression: Asthma exacerbation - Scribe Statement The provider has reviewed the documentation as recorded by the Scribe Luis Eduardo Keenan All medical record entries made by the Scribe were at my direction and personally dictated by me. I have reviewed the chart and agree that the record accurately reflects my personal performance of the history, physical exam, medical decision making, and the department course for this patient. I have also personally directed, reviewed, and agree with the discharge instructions and disposition.
[2018-08-26] MEDS ORDERED: Albuterol 0.083% Inhal Sol (2.5 mg/3 mL) UD ONE (00:47)
[2018-08-26 01:03] VITALS: BP 128/84; PULSE 94; RESP 18; TEMP 98
[2018-08-26 03:08] VITALS: O2SAT 94
--- NOTE | 2018-08-26 15:51 | RAD ---
Date of service: 08/25/2018 PROCEDURE: CHEST RADIOGRAPH, 1 VIEW HISTORY: SOB COMPARISON: 01/02/2018 FINDINGS: LUNGS: Minimal bibasilar subsegmental atelectasis. Poor inspiratory effort. PLEURA: No pneumothorax or pleural fluid seen. CARDIOVASCULAR: No aortic atherosclerotic calcification present. Normal. OSSEOUS STRUCTURES: No significant abnormalities. VISUALIZED UPPER ABDOMEN: Normal. OTHER FINDINGS: None. IMPRESSION: No active disease.
--- NOTE | 2018-08-27 20:42 | CARD ---
APPROVED REPORT Date of service: 08/25/2018 EKG Measurement Heart [id number] <Conclusion> Sinus tachycardia Minimal voltage criteria for LVH, may be normal variant Borderline ECG
== END 2018-08-26 01:12 | disposition home or self-care (01) ==
LOC: C.ER 22:35 → SUPCPDRO 22:35 → C.ER 08-26 01:12
DX: J45.901 Unspecified asthma with (acute) exacerbation (principal)
CPT/HCPCS: 71045; 80053; 82550; 82553; 83880; 84484; 85025; 93005; 96374; 99284; J2930

== ENCOUNTER 2018-09-09 00:46 | Inpatient (IN) | payer MEDICAID ==
[2018-09-09 00:46] VITALS: BMI 29.0
[2018-09-09] MEDS ORDERED: Albuterol-Ipratrop 3 mg / 0.5 (3 ml) UD ONE ×3 (00:54→08:55)
--- NOTE | 2018-09-09 01:03 | C.PDOC ---
History Of Present Illness Patient presents with 4 days of worsening shortness of breath , cough. denies any chest pain. No f/c/n/v. Speaking in 1-2 word sentences. Been hospitalized for asthma exacerbation in the past. Time Seen by Provider: 09/09/18 01:02 Chief Complaint (Nursing): Respiratory Distress History Per: Patient History/Exam Limitations: no limitations Onset/Duration Of Symptoms: Days (4) Current Symptoms Are (Timing): Worse Initiating Event: Upper Respiratory Illness Exacerbating Factor(s): Coughing Current Respiratory Medications: See Home Med List Severity: Severe Pain Scale Rating Of: 8 Associated Symptoms: denies: Fever, Chills, Sweating Reports Recently: Seen In ED, Treated By A Physician, Hospitalized Recent travel outside of the [place]: No Additional History Per: Patient Past Medical History Reviewed: Historical Data, Nursing Documentation, Vital Signs Vital Signs: Last Vital Signs Temp 98 F 09/09/18 00:53 Pulse 116 H 09/09/18 00:53 Resp 18 09/09/18 00:53 BP 116/82 09/09/18 00:53 Pulse Ox 94 L 09/09/18 00:53 - Medical History PMH: Arthritis (knee), Asthma Denies: Chronic Kidney Disease Family History: States: No Known Family Hx - Social History Hx Tobacco Use: No Hx Alcohol Use: No Hx Substance Use: No - Immunization History Hx Tetanus Toxoid Vaccination: No Hx Influenza Vaccination: No Hx Pneumococcal Vaccination: No Review Of Systems Constitutional: Negative for: Fever, Chills Cardiovascular: Negative for: Chest Pain Respiratory: Positive for: Shortness of Breath, Wheezing Gastrointestinal: Negative for: Abdominal Pain Genitourinary: Negative for: Dysuria Musculoskeletal: Negative for: Back Pain Skin: Negative for: Rash Neurological: Negative for: Weakness Psych: Negative for: Anxiety Physical Exam - Physical Exam Appears: In Acute Distress Skin: Warm, Dry Head: Normacephalic Eye(s): bilateral: Normal Inspection Oral Mucosa: Moist Neck: Supple Chest: Symmetrical Cardiovascular: Rhythm Regular Respiratory: Decreased Breath Sounds, Accessory Muscle Use, No Rales, Rhonchi, Wheezing Gastrointestinal/Abdominal: Soft, No Tenderness, No Distention Back: Normal Inspection Extremity: Normal ROM Extremity: Bilateral: Atraumatic Neurological/Psych: Oriented x3 Gait: Steady ED Course And Treatment - Laboratory Results Result Diagrams: 09/09/18 01:20 09/09/18 01:20 ECG: Interpreted By Me, Viewed By Me ECG Rhythm: Sinus Tachycardia (119), Nonspecific Changes O2 Sat by Pulse Oximetry: 94 Pulse Ox Interpretation: Normal - Radiology CXR: Interpreted by Me, Viewed By Me Critical Care Time - Critical Care Note Total Time (in mins): 30 Documented critical care: time excludes all time spent performing seperately billable procedures. Disposition Discussed With Dr.: Kaushik Rahman Comment: accepted the pt on his service and took over the care at 3:08 AM Doctor Will See Patient In The: Hospital Counseled Patient/Family Regarding: Studies Performed, Diagnosis - Disposition Disposition: HOSPITALIZED Disposition Time: :03 Condition: GUARDED Forms: [employer] (Romansh) - POA Present On Arrival: Poor Glycemic Control - Clinical Impression Clinical Impression: Exacerbation of asthma Decision To Admit - Pt Status Changed To: Hospital Disposition Of: Inpatient - Admit Certification Admit to Inpatient:: After my assessment, the patient will require hospitalization for at least two midnights. This is because of the severity of symptoms shown, intensity of services needed, and/or the medical risk in this patient being treated as an outpatient. - InPatient: Physician Admission Certification: I certify that this patient requires 2 or more midnights of care for the following reason:: After my assessment, the patient will require hospitalization for at least two midnights. This is because of the severity of symptoms shown, intensity of services needed, and/or the medical risk in this patient being treated as an outpatient. - . Bed Request Type: Telemetry Admitting Physician: Kaushik Rahman Patient Diagnosis: Exacerbation of asthma
[2018-09-09] MEDS ORDERED: Sodium Chloride 0.9% 1,000 ML IV ONE (01:04)
[2018-09-09] MEDS ORDERED: Sodium Chloride 0.9% 1,000 ML ONE (01:10)
[2018-09-09 01:24] LABS: BASO % 0.7 % (0.0-2.0); EOS # 0.1 K/uL (0.0-0.7); EOS % 2.2 % (0.0-4.0); HEMOGLOBIN 14.1 g/dL (12.0-18.0); LYMPH # 1.6 K/uL (1.0-4.3); LYMPH % 51.9 % (20.0-40.0); MEAN CELL VOLUME 83.2 fL (80.0-94.0); MEAN CORPUSCULAR HEMOGLOBIN 27.5 pg (27.0-31.0); MEAN CORPUSCULAR HGB CONC 33.1 g/dL (33.0-37.0); MEAN PLATELET VOLUME 7.2 fL (7.2-11.7); MONO # 0.3 K/uL (0.0-0.8); MONO % 8.2 % (0.0-10.0); NEUT # 1.2 K/uL (1.8-7.0); NRBC % 0.2 % (0.0-2.0); RBC 5.11 Mil/uL (4.40-5.90); RED CELL DISTRIBUTION WIDTH 13.9 % (11.5-14.5); WHITE BLOOD COUNT 3.2 K/uL (4.8-10.8)
[2018-09-09 01:33] LABS: ABG ALLEN TEST POS; ARTERIAL BLOOD GAS HCO3 28.3 mmol/L (21-28); ARTERIAL BLOOD GAS O2 SAT 99.2 % (95-98); ARTERIAL BLOOD GAS PCO2 40 mm/Hg (35-45); ARTERIAL BLOOD GAS PH 7.46 (7.35-7.45); ARTERIAL BLOOD GAS PO2 128 mm/Hg (80-100); ARTERIAL BLOOD GAS TCO2 29.6 mmol/L (22-28)
[2018-09-09 01:34] LABS: ALB/GLOB RATIO 1.1 (1.0-2.1); ALBUMIN 2.7 g/dL (3.5-5.0); ALT/SGPT 44 U/L (21-72); AST/SGOT 43 U/L (17-59); BLOOD UREA NITROGEN 19 mg/dL (9-20); CALCIUM 7.3 mg/dl (8.6-10.4); GFR NON-AFRICAN AMERICAN > 60
[2018-09-09] MEDS: Albuterol-Ipratrop 3 mg / 0.5 (3 ml) UD IH SCH (01:34)
[2018-09-09] MEDS ORDERED: Piperacillin/Tazobact 3.375 gm 100 ML IVPB STA (03:17)
[2018-09-09] MEDS ORDERED: Piperacill/Tazo 3.375gm in Dex 3.375 GM/50 ML BAG IVPB STA (03:27)
[2018-09-09] MEDS: Albuterol-Ipratrop 3 mg / 0.5 (3 ml) UD INH SCH ×4 (04:37→20:08)
[2018-09-09 04:43] VITALS: RESP 20
--- NOTE | 2018-09-09 09:22 | RAD ---
HISTORY: SOB COMPARISON: Chest x-ray performed 08/25/18 TECHNIQUE: Chest, one view. FINDINGS: Examination limited by habitus and hypoinflation. LUNGS: Right hilar prominence. Subsegmental atelectasis, right lung base. No focal consolidation. Please note that chest x-ray has limited sensitivity for the detection of pulmonary masses. PLEURA: No significant pleural effusion identified. No definite pneumothorax . CARDIOVASCULAR: Heart size appears within normal limits. Ectatic aorta. No significant atherosclerotic calcification present. OSSEOUS STRUCTURES: Degenerative changes. VISUALIZED UPPER ABDOMEN: Unremarkable. OTHER FINDINGS: None. IMPRESSION: Subsegmental atelectasis, right lung base. Right hilar prominence
[2018-09-09] MEDS: MethylPREDNISolone 40 mg Vial IVP SCH ×2 (13:24→21:28)
[2018-09-09 16:32] VITALS: O2SAT 96
[2018-09-09] MEDS ORDERED: guaiFENesin DM 100 mg-10 mg/5 ml UD PO PRN (21:51)
[2018-09-09] MEDS: Pantoprazole 20 mg EC Tab PO SCH (22:35)
[2018-09-10] MEDS: Albuterol-Ipratrop 3 mg / 0.5 (3 ml) UD INH SCH ×3 (00:08→11:40)
[2018-09-10] MEDS: MethylPREDNISolone 40 mg Vial IVP SCH (05:11)
--- NOTE | 2018-09-10 07:55 | CP.PCM.PN ---
Subjective - Date & Time of Evaluation Date of Evaluation: 09/10/18 Time of Evaluation: 07:53 - Subjective Subjective: Medicine Progress Note - Dr Rahman's Service Patient is a 53 year old male with no significant past medical history who presented to the emergency dept for worsening shortness of breath and non- productive cough x 6 days. He also reports losing his voice. Patient currently still coughing, worse with talking. Denies any fevers, chills, headaches, dizziness, cp, palpitations, abdominal pain, urinary symptoms, changes in bowel habits. ED course: Solumedrol 125mg IVP, Duonebs x 3, Lasix 20mg IVP PMD- Dr. Hayes in [place] Allergies: NKDA Past medical History: cellulitis Past Surgical history: hernia repair Medications:denies Social history: Former smoker 1/2 pack a day for 35 years- quit 8-9 years ago; denies current drug use; denies alcohol use; works as a front end loader driver Family History: Denies Objective - Vital Signs/Intake and Output Vital Signs (last 24 hours): Temp Pulse Resp BP Pulse Ox 98.4 F 86 20 124/81 96 09/09/18 22:10 09/10/18 04:00 09/09/18 22:10 09/09/18 22:35 09/09/18 22:10 - Medications Medications: Current Medications Albuterol/Ipratropium (Duoneb 3 Mg/0.5 Mg (3 Ml) Ud) 3 ml INH RQ4 [facility] Last Admin: 09/10/18 00:08 Dose: 3 ml Guaifenesin/Dextromethorphan (Robitussin Dm) 5 ml PO Q4H PRN PRN Reason: Cough Methylprednisolone (Solu-Medrol) 40 mg IVP Q8 [facility] Last Admin: 09/10/18 05:11 Dose: 40 mg Pantoprazole Sodium (Protonix Ec Tab) 20 mg PO DAILY [facility] Last Admin: 09/09/18 22:35 Dose: 20 mg - Labs Labs: 09/09/18 01:20 09/09/18 01:20 - Constitutional Appears: Non-toxic, No Acute Distress - Head Exam Head Exam: ATRAUMATIC, NORMAL INSPECTION, NORMOCEPHALIC - Eye Exam Eye Exam: EOMI, Normal appearance Pupil Exam: NORMAL ACCOMODATION - ENT Exam ENT Exam: Mucous Membranes Moist Additional comments: Lip: cold sore - Respiratory Exam Respiratory Exam: Wheezes, NORMAL BREATHING PATTERN. absent: Rales, Rhonchi - Cardiovascular Exam Cardiovascular Exam: REGULAR RHYTHM, +S1, +S2 - GI/Abdominal Exam GI & Abdominal Exam: Soft. absent: Guarding, Rigid, Tenderness - Extremities Exam Extremities Exam: Full ROM. absent: Calf Tenderness Additional comments: +non-pitting edema bilaterally - Neurological Exam Neurological Exam: Alert, Awake, Oriented x3 - Psychiatric Exam Psychiatric exam: Normal Affect, Normal Mood - Skin Skin Exam: Dry, Normal Color, Warm Assessment and Plan - Assessment and Plan (Free Text) Assessment: Patient is a 53 year old male admitted with worsening shortness of breath, non- productive cough and hypoxia Acute Asthma exacerbation -Stable, afebrile -Solumedrol 40mg IVP Q8H -Duonebs Q4H JOSUÉ -Robitussin DM Q4H prn cough -CXR: subsegmental atelectasis right lung base, right hilar prominence -EKG on admission: Sinus tachycardia 119bpm -Continue to monitor respiratory status Upper respiratory tract infection -Robitussin DM Q4H prn cough -PO hydration, rest -Will d/c home with cecilia krishnamurthy Hypokalemia -Potassium 3.5 on admission -F/U AM CMP GI/DVT ppx: Protonix 20mg PO daily Lovenox 40mg SC daily DISPO: Patient is medically stable for discharge home. Saturating 96% on room air. Patient prescribed Z yessy, Medrol dose pack, Robitussin prn cough, and Ventolin inhaler. Patient to follow up with PMD within 5 days. For lymphadema, recommending compression stockings. Plan to be discussed with Dr Josiah Del Rio DO PGY-2
[2018-09-10 09:16] VITALS: BP 108/70; TEMP 97.6
--- NOTE | 2018-09-10 09:52 | HP ---
HISTORY OF PRESENT ILLNESS: A 53-year-old male, admitted to the hospital with a chief complaint of shortness of breath, weakness, fatigue, tiredness and cough. The patient has been sick for about a week with vomiting and cold, given nebulizer treatments. The patient came to the ER, advised admission. SOCIAL HISTORY: The patient is nonsmoker and nondrinker. PHYSICAL EXAMINATION: GENERAL: The patient is awake, alert, and oriented. VITAL SIGNS: Temperature 98, pulse 90. HEENT: Within normal limits. NECK: Supple. CHEST: Symmetrical. HEART: Regular. ABDOMEN: Soft. EXTREMITIES: No edema. ASSESSMENT AND PLAN: The patient has bronchial asthma and bronchitis. The patient is on bedrest, supportive care. Kaushik Rahman MD
[2018-09-10] MEDS ORDERED: Enoxaparin 40 mg Syringe SC SCH (10:00)
[2018-09-10] MEDS: Pantoprazole 20 mg EC Tab PO SCH (10:51)
[2018-09-10] MEDS ORDERED: Influenza Vaccine 60 mcg/0.5 mL SYR (4YR UP) IM ONE (11:23)
[2018-09-10 11:35] LABS: BASO % 0.4 % (0.0-2.0); EOS % 0.1 % (0.0-4.0); HEMOGLOBIN 13.4 g/dL (12.0-18.0); LYMPH # 0.5 K/uL (1.0-4.3); LYMPH % 8.9 % (20.0-40.0); MEAN CELL VOLUME 82.8 fL (80.0-94.0); MEAN CORPUSCULAR HEMOGLOBIN 28.5 pg (27.0-31.0); MEAN CORPUSCULAR HGB CONC 34.4 g/dL (33.0-37.0); MONO # 0.3 K/uL (0.0-0.8); MONO % 4.2 % (0.0-10.0); NEUT # 5.2 K/uL (1.8-7.0); NEUT % 86.4 % (50.0-75.0); NRBC % 0.1 % (0.0-2.0); PLATELET COUNT 239 K/uL (130-400); RED CELL DISTRIBUTION WIDTH 13.4 % (11.5-14.5)
[2018-09-10 11:45] VITALS: PULSE 69
[2018-09-10 12:06] LABS: ALB/GLOB RATIO 1.3 (1.0-2.1); ALT/SGPT 46 U/L (21-72); AST/SGOT 30 U/L (17-59); BLOOD UREA NITROGEN 20 mg/dL (9-20); CALCIUM 7.8 mg/dl (8.6-10.4); GFR NON-AFRICAN AMERICAN > 60
[2018-09-10 12:23] LABS: BANDS 3 % (0-2); LYMPHOCYTE 8 % (20-40); MONOCYTE 3 % (0-10); NEUTROPHIL 86 % (50-75); PLATELET ESTIMATE NORMAL (NORMAL); TOTAL CELLS COUNTED 100
--- NOTE | 2018-09-10 16:08 | CARD ---
APPROVED REPORT Date of service: 09/09/2018 EKG Measurement Heart [id number] <Conclusion> Sinus tachycardia Otherwise normal ECG
== END 2018-09-10 13:00 | disposition home or self-care (01) | DRG 96 ==
LOC: C.ER 00:46 → C.9E 03:06 → C.6T 10:12
PROVIDERS: ADMIT Internal Medicine Pulmonary Disease; ATTEND Internal Medicine Pulmonary Disease
DX: J45.901 Unspecified asthma with (acute) exacerbation (principal); E87.6 Hypokalemia; J98.11 Atelectasis; R09.02 Hypoxemia; J06.9 Acute upper respiratory infection, unspecified; R00.0 Tachycardia, unspecified; Z87.891 Personal history of nicotine dependence; Z23 Encounter for immunization

== ENCOUNTER 2019-01-08 01:22 | Observation (INO) | payer MEDICAID ==
[2019-01-08 01:22] VITALS: BMI 29.0
[2019-01-08] MEDS ORDERED: Albuterol-Ipratrop 3 mg / 0.5 (3 ml) UD ONE ×2 (01:28→02:09)
[2019-01-08] MEDS ORDERED: Sodium Chloride 0.9% 1,000 ML IV ONE ×2 (01:58→03:26)
--- NOTE | 2019-01-08 01:58 | C.PDOC ---
History Of Present Illness Patient presents with shortness of breath.,Speaking in 2-3 word sentences. No f/c/n/v. Has been hospitalized about 4 months ago for similar presentation Time Seen by Provider: 01/08/19 01:58 Chief Complaint (Nursing): Shortness Of Breath History Per: Patient History/Exam Limitations: no limitations Onset/Duration Of Symptoms: Days Current Symptoms Are (Timing): Still Present Initiating Event: Upper Respiratory Illness Quality: denies: Dull Exacerbating Factor(s): Coughing Current Respiratory Medications: See Home Med List Severity: Moderate Pain Scale Rating Of: 5 Associated Symptoms: Productive Cough. denies: Fever, Chills, Sweating, Chest Pain Reports Recently: Seen In ED, Treated By A Physician Recent travel outside of the [place]: No Additional History Per: Patient Past Medical History Reviewed: Historical Data, Nursing Documentation, Vital Signs Vital Signs: Last Vital Signs Temp 98.4 F 01/08/19 01:29 Pulse 100 H 01/08/19 01:29 Resp 22 01/08/19 01:29 BP 137/84 01/08/19 01:29 Pulse Ox 99 01/08/19 01:29 Primary Care Provider: Patrick Jean Baptiste - Medical History PMH: Arthritis (knee), Asthma Denies: Chronic Kidney Disease Family History: States: No Known Family Hx - Social History Hx Tobacco Use: No Hx Alcohol Use: No Hx Substance Use: No - Immunization History Hx Tetanus Toxoid Vaccination: No Hx Influenza Vaccination: No Hx Pneumococcal Vaccination: No Review Of Systems Constitutional: Negative for: Fever, Chills Cardiovascular: Negative for: Chest Pain Respiratory: Positive for: Shortness of Breath, Wheezing Gastrointestinal: Negative for: Nausea, Vomiting, Abdominal Pain Genitourinary: Negative for: Dysuria Musculoskeletal: Negative for: Back Pain Skin: Negative for: Rash Neurological: Negative for: Weakness Psych: Negative for: Anxiety Physical Exam - Physical Exam Skin: Warm, Dry Oral Mucosa: Moist Neck: Supple Chest: Symmetrical Cardiovascular: Rhythm Regular Respiratory: Decreased Breath Sounds, No Rales, No Rhonchi, Wheezing Gastrointestinal/Abdominal: Soft, No Tenderness, No Distention Back: No CVA Tenderness Extremity: Normal ROM Extremity: Bilateral: Atraumatic Neurological/Psych: Oriented x3 Gait: Steady ED Course And Treatment - Laboratory Results Result Diagrams: 01/08/19 02:07 01/08/19 02:07 ECG: Interpreted By Me, Viewed By Me ECG Rhythm: Sinus Rhythm (116), Nonspecific Changes O2 Sat by Pulse Oximetry: 99 Pulse Ox Interpretation: Normal - Radiology CXR: Interpreted by Me, Viewed By Me CXR Interpretation: Yes: Other (unchanged from 1.). No: Infiltrates, Fr acture, Pnemothorax Critical Care Time - Critical Care Note Total Time (in mins): 30 Documented critical care: time excludes all time spent performing seperately billable procedures. Disposition Discussed With Dr.: Kaushik Rahman Comment: accepted the pt on his service and took over the care at 3:31AM Doctor Will See Patient In The: Hospital Counseled Patient/Family Regarding: Studies Performed, Diagnosis, Need For Followup - Disposition Disposition: HOSPITALIZED Disposition Time: 01:58 Condition: FAIR Forms: [facility] (Romansh) - POA Present On Arrival: None - Clinical Impression Clinical Impression: Dyspnea, Respiratory distress, Acute asthma exacerbation Decision To Admit - Pt Status Changed To: Hospital Disposition Of: Observation - . Bed Request Type: Telemetry Admitting Physician: Kaushik Rahman Patient Diagnosis: Dyspnea, Respiratory distress, Acute asthma exacerbation
[2019-01-08] MEDS: Albuterol-Ipratrop 3 mg / 0.5 (3 ml) UD IH SCH ×3 (02:00→02:22)
[2019-01-08 02:10] LABS: BASO # 0.1 K/uL (0.0-0.2); BASO % 0.9 % (0.0-2.0); EOS # 1.1 K/uL (0.0-0.7); EOS % 14.7 % (0.0-4.0); HEMOGLOBIN 16.7 g/dL (12.0-18.0); LYMPH # 2.1 K/uL (1.0-4.3); LYMPH % 27.9 % (20.0-40.0); MEAN CELL VOLUME 83.5 fL (80.0-94.0); MEAN CORPUSCULAR HEMOGLOBIN 29.1 pg (27.0-31.0); MEAN CORPUSCULAR HGB CONC 34.8 g/dL (33.0-37.0); MEAN PLATELET VOLUME 7.3 fL (7.2-11.7); MONO # 0.7 K/uL (0.0-0.8); MONO % 9.6 % (0.0-10.0); NEUT # 3.5 K/uL (1.8-7.0); NEUT % 46.9 % (50.0-75.0); NRBC % 0.1 % (0.0-2.0); RBC 5.76 Mil/uL (4.40-5.90); RED CELL DISTRIBUTION WIDTH 13.1 % (11.5-14.5); WHITE BLOOD COUNT 7.4 K/uL (4.8-10.8)
[2019-01-08 02:22] LABS: VENOUS BLOOD GAS BASE EXCESS 1.5 mmol/L (0.0-2.0); VENOUS BLOOD GAS PCO2 46 mmHg (40-60); VENOUS BLOOD GAS PO2 53 mm/Hg (30-55); VENOUS BLOOD PH 7.38 (7.32-7.43)
[2019-01-08 02:23] LABS: ALB/GLOB RATIO 1.3 (1.0-2.1); ALBUMIN 3.6 g/dL (3.5-5.0); ALT/SGPT 37 U/L (21-72); AST/SGOT 27 U/L (17-59); BLOOD UREA NITROGEN 21 mg/dL (9-20); CALCIUM 8.5 mg/dl (8.6-10.4); GFR NON-AFRICAN AMERICAN 58
[2019-01-08] MEDS ORDERED: Magnesium Sulfate 1 gm in D5W 2 GM/200 ML BAG IVPB ONE (03:19)
[2019-01-08] MEDS: Magnesium Sulfate 1 gm in D5W 1 GM/100 ML BAG IVPB SCH ×2 (03:32→03:33)
[2019-01-08] MEDS: Albuterol-Ipratrop 3 mg / 0.5 (3 ml) UD INH SCH ×2 (04:00→06:00)
[2019-01-08 06:22] VITALS: BP 126/77; TEMP 98.6; O2SAT 95
[2019-01-08 10:58] VITALS: PULSE 133; RESP 18
[2019-01-08] MEDS ORDERED: Albuterol-Ipratrop 3 mg / 0.5 (3 ml) UD INH PRN (11:07)
--- NOTE | 2019-01-08 11:09 | CP.PCM.PN ---
Subjective - Date & Time of Evaluation Date of Evaluation: 01/08/19 Time of Evaluation: 11:14 - Subjective Subjective: Medicine Note for Dr. Rahman's Service This is a 53 year old male with PMHx of COPD, seasonal allergies, and chronic lower extremity swelling who presented yesterday with shortness of breath. Patient reported he was walking around and noted shortness of breath. He does not use any inhalers, only nebulizers as needed. He admitted to associated nonproductive cough. Denied any recent travel, sick contacts, fever, chills, rhinorrhea, sore throat, chest pain, abdominal pain, n/v/d/c. PMD: Dr. Hayes in [place] (seen this year) Pulm: Josiah PMHx: As noted above PSHx: Hernia repair Meds: Nebulizer as needed All: Seasonal SHx: Former smoker 1/2 pack a day for 35 years- quit 10 years ago; denies current drug use; denies alcohol use; works as a [employer] driver FHx: Denied HCM: stress test performed 2017 - normal Objective - Vital Signs/Intake and Output Vital Signs (last 24 hours): Temp Pulse Resp BP Pulse Ox 98.6 F 133 H 18 126/77 95 01/08/19 06:21 01/08/19 10:15 01/08/19 10:15 01/08/19 06:21 01/08/19 10:15 - Medications Medications: Current Medications Albuterol/Ipratropium (Duoneb 3 Mg/0.5 Mg (3 Ml) Ud) 3 ml INH RQ6 PRN PRN Reason: Shortness of Breath Fluticasone/Vilanterol (Breo Ellipta 100-25 Mcg Inh) 1 puff INH RQD JOSUÉ Fluticasone/Vilanterol (Breo Ellipta 100-25 Mcg Inh) 1 puff INH ONCE ONE Stop: 01/09/19 12:01 Loratadine (Claritin) 10 mg PO QPM JOSUÉ - Labs Labs: 01/08/19 02:07 01/08/19 02:07 - Constitutional Appears: No Acute Distress - Head Exam Head Exam: NORMAL INSPECTION, NORMOCEPHALIC - Eye Exam Eye Exam: EOMI, Normal appearance, PERRL Pupil Exam: NORMAL ACCOMODATION - ENT Exam ENT Exam: Mucous Membranes Moist - Respiratory Exam Respiratory Exam: Decreased Breath Sounds (No wheezing noted, ). absent: Whee zes - Cardiovascular Exam Cardiovascular Exam: Tachycardia - GI/Abdominal Exam GI & Abdominal Exam: Soft, Normal Bowel Sounds. absent: Distended, Tenderness - Extremities Exam Extremities Exam: Pedal Edema (bilaterally +1 up to mid bonilla, not tender to palpation some venous stasis skin changes noted ) - Neurological Exam Neurological Exam: Alert, Awake, Oriented x3 - Psychiatric Exam Psychiatric exam: Normal Affect, Normal Mood - Skin Skin Exam: Dry, Intact, Normal Color, Warm Assessment and Plan - Assessment and Plan (Free Text) Plan: COPD Exacerbation - Patient is not on maintenance therapy - Started on Breo Ellipta Daily, Prednisone, Albuterol PRN - Duonebs PRN Seasonal Allergies - Started Claritin will take at night for the next 3-4 weeks Hx Tobacco Use Disorder - Last smoked >10 years ago - Heavy smoker Prophylactic Measures - GI PPX: not indicated - DVT PPX: lovenox daily Disposition: Patient is stable for discharge -------- Please continue taking the following medications: Albuterol HFA 2 puffs as needed for when short of breath, when you are not home, carry this with you at all times Nebulizer treatment when short of breath at home Zyrtec 10mg everyday at night fot the next 4 weeks minimum due to high pollen count Breo Ellipta 1 puff DAILY - this is to help prevent exacerbations Steroid dose pack please take as instructed Please follow up with Dr. Hayes and Dr. Rahman within 1-2 weeks for follow up. -------- SALINA Rahman, Zaria Gibbs DO, PGY2
[2019-01-08] MEDS ORDERED: Arformoterol 15 mcg/2 ml Inh Sol INH SCH ×2 (11:45→12:00)
[2019-01-08] MEDS ORDERED: Budesonide 0.25 mg/2 ml Inhal Susp UD INH SCH (12:00)
--- NOTE | 2019-01-08 13:24 | RAD ---
Date of service: 01/08/2019 PROCEDURE: CHEST RADIOGRAPH, 1 VIEW HISTORY: SOB COMPARISON: 09/09/2018 09/09/2018 FINDINGS: LUNGS: Clear. PLEURA: No pneumothorax or pleural fluid seen. CARDIOVASCULAR: No aortic atherosclerotic calcification present. Normal. OSSEOUS STRUCTURES: No significant abnormalities. VISUALIZED UPPER ABDOMEN: Normal. OTHER FINDINGS: None. IMPRESSION: No active disease.
--- NOTE | 2019-01-09 07:09 | HP ---
HISTORY OF PRESENT ILLNESS: This is a 53-year-old male, was admitted to hospital with chief complaint of shortness of breath, wheeze, fatigue, tiredness, cough. The patient came to the ER, advised admission. asthma, noncompliant with Proventil inhaler. PHYSICAL EXAMINATION GENERAL: The patient is awake, alert, and oriented. VITAL SIGNS: Temperature 98, pulse 90. HEENT: Within normal limits. NECK: Supple. CHEST: Symmetrical. Decreased air entry. HEART: Regular. ABDOMEN: Soft. EXTREMITIES: No edema. ASSESSMENT AND PLAN: The patient has bronchial asthma and bronchitis. The patient is to get bedrest, supportive care, bronchodilators. Kaushik Rahman MD
[2019-01-09] MEDS ORDERED: Enoxaparin 40 mg Syringe SC SCH (10:00)
[2019-01-09] MEDS ORDERED: Fluticasone-Vilanterol 100/25mcg Diskus INH ONE (12:00)
== END 2019-01-08 15:16 | disposition home or self-care (01) ==
LOC: C.ER 01:22 → C.9E 03:26 → C.9I 06:57
PROVIDERS: ADMIT Internal Medicine Pulmonary Disease; ATTEND Internal Medicine Pulmonary Disease
DX: J44.1 Chronic obstructive pulmonary disease with (acute) exacerbation (principal); J45.901 Unspecified asthma with (acute) exacerbation; Z91.19 Patient's noncompliance with other medical treatment and regimen; Z87.891 Personal history of nicotine dependence
CPT/HCPCS: 71045; 80053; 82803; 85025; 87081; 94640; 96361; 96365; 96375; G0378; J1885; J2930; J3475; J7030